=== PATIENT | female | born 1950 | race Caucasian/White ===

== ENCOUNTER → 2017-05-15 | Outpatient (CLI) | payer OTHER, MEDICARE | LOC: FIMAGING 10:46 | PROVIDERS: ATTEND Internal Medicine Hematology & Oncology | DX: Z12.31 Encounter for screening mammogram for malignant neoplasm of breast (principal); Z85.3 Personal history of malignant neoplasm of breast; L76.82 Other postprocedural complications of skin and subcutaneous tissue | CPT/HCPCS: G0202 ==

== ENCOUNTER → 2018-06-23 | Outpatient (CLI) | payer OTHER, MEDICARE | LOC: FIMAGING 13:04 | PROVIDERS: ATTEND Internal Medicine Hematology & Oncology | DX: Z12.31 Encounter for screening mammogram for malignant neoplasm of breast (principal); Z85.3 Personal history of malignant neoplasm of breast ==

== ENCOUNTER → 2018-08-01 | Outpatient (CLI) | payer OTHER, MEDICARE | LOC: BMCIMAGING 15:51 | PROVIDERS: ATTEND Internal Medicine | DX: J98.4 Other disorders of lung (principal) ==

== ENCOUNTER → 2018-08-04 | Outpatient (CLI) | payer OTHER, MEDICARE | LOC: BMCIMAGING 13:13 | PROVIDERS: ATTEND Internal Medicine | DX: J98.4 Other disorders of lung (principal); Z85.3 Personal history of malignant neoplasm of breast ==

== ENCOUNTER → 2018-08-22 | Outpatient (CLI) | payer OTHER, MEDICARE | LOC: FIMAGING 07:10 | PROVIDERS: ATTEND Surgery | DX: N64.4 Mastodynia (principal); Z85.3 Personal history of malignant neoplasm of breast ==

== ENCOUNTER → 2018-09-26 | Outpatient (CLI) | payer OTHER, MEDICARE ==
[~2018-09-26] MED LIST: LIDOCAINE 1% 300 MG/30 ML SDV ONE
== END ==
LOC: FIMAGING 07:41
PROVIDERS: ATTEND Internal Medicine Hematology & Oncology
DX: C50.211 Malignant neoplasm of upper-inner quadrant of right female breast (principal); Z17.1 Estrogen receptor negative status [ER-]

== ENCOUNTER → 2018-10-09 | Outpatient (CLI) | payer OTHER, MEDICARE | LOC: BHFA 14:45 | PROVIDERS: ATTEND Internal Medicine Interventional Cardiology | DX: Z51.11 Encounter for antineoplastic chemotherapy (principal) ==

== ENCOUNTER → 2018-10-20 | Outpatient (CLI) | payer OTHER, MEDICARE ==
[~2018-10-20] MED LIST changes: +IOPAMIDOL (ISOVUE 370) 100 ML BTL IV ONE; -LIDOCAINE 1% 300 MG/30 ML SDV ONE
== END ==
LOC: FIMAGING 12:22
PROVIDERS: ATTEND Physician Assistant
DX: C50.919 Malignant neoplasm of unspecified site of unspecified female breast (principal); J90 Pleural effusion, not elsewhere classified
CPT/HCPCS: 70498; 71275; Q9967

== ENCOUNTER 2018-11-04 15:37 | Inpatient (IN) | payer OTHER, MEDICARE ==
--- NOTE | 2018-11-04 16:41 | EDPHY ---
H & P Stated Complaint: SOB, neck swelling, CA pt, Time Seen by Provider: 11/04/18 16:40 HPI/ROS: CHIEF COMPLAINT: Plethora, shortness of breath, upper thoracic and neck swelling HISTORY OF PRESENT ILLNESS: The patient has a history of metastatic breast cancer Brad to the emergency department after she has developed symptoms of increasing shortness of breath, bilateral arm edema, plethora and decreased function of her chemo port. The patient had a CT scan performed approximately 3 weeks ago which suggested early SVC obstruction. Patient reports that her symptoms have worsened. She is currently anticoagulated with Eliquis. She was referred to the emergency department by [facility] for stat imaging to assess for progressive disease. Patient denies any fever, cough or congestion. She denies any complaints of acute numbness or weakness. She denies any complaints of melena. REVIEW OF SYSTEMS: A comprehensive 10 point review of systems is otherwise negative aside from elements mentioned in the history of present illness. Source: Patient - Personal History Current Tetanus/Diphtheria Vaccine: Yes Current Tetanus Diphtheria and Acellular Pertussis (TDAP): Yes Tetanus Vaccine Date: 2000 - Medical/Surgical History Hx Asthma: No Hx Chronic Respiratory Disease: No Hx Diabetes: No Hx Cardiac Disease: No Hx Renal Disease: No Hx Cirrhosis: No Hx Alcoholism: No Hx HIV/AIDS: No Hx Splenectomy or Spleen Trauma: No Other PMH: breast CA w/ mets, PNA, - Social History Smoking Status: Never smoked - Physical Exam Exam: General Appearance: Elderly female, mild respiratory distress Head: Normocephalic, mildly plethoric Neck: JVD present Eyes: Pupils equal and round no pallor or injection ENT, Mouth: Mucous membranes moist Respiratory: Tachycardic Cardiovascular: Regular rate and rhythm Gastrointestinal: Abdomen is soft and nontender, no masses, bowel sounds normal Neurological: 5/5 strength noted all 4 extremities Skin: Warm and dry, no rashes Musculoskeletal: Neck is supple nontender Extremities: symmetrical, full range of motion Constitutional: Initial Vital Signs Temperature (C) 36.6 C 11/04/18 15:58 Heart Rate 124 H 11/04/18 15:58 Respiratory Rate 16 11/04/18 15:58 Blood Pressure 110/73 11/04/18 15:58 O2 Sat (%) 91 L 11/04/18 15:58 O2 Delivery Mode Room Air O2 (L/minute) 2 Allergies/Adverse Reactions: albuterol [Albuterol] Allergy (Verified 01/19/11 18:18) codeine [Codeine] Allergy (Verified 05/31/11 10:39) latex Allergy (Verified 07/07/15 12:07) oxycodone HCl [From Percocet] Allergy (Verified 05/31/11 10:39) prochlorperazine [From Compazine] Allergy (Verified 11/04/18 15:57) Home Medications: Medication Instructions Recorded Heather-D 12 Hour Tablet 05/31/11 Eliquis 11/04/18 Memantine HCl 11/04/18 Medical Decision Making - Diagnostics Imaging Results: Imaging Impressions Chest/Thorax CTA 11/04/18 16:45 Impression: 1. No evidence of acute pulmonary embolism. 2. Critical, high-grade stenosis of the SVC concerning for SVC syndrome, possibly secondary to a combination of chest port catheter associated thrombus and/or metastatic involvement. 3. Worsening of bilateral pleural effusions and atelectasis. Maximilian Carmona was notified of these findings by telephone at 6:04 PM on 11/04/2018 ED Course/Re-evaluation: The patient presents to the ED with symptoms of worsening SVC syndrome. The patient was noted to be slightly tachycardic and mildly hypoxemic. She is currently anticoagulated with Eliquis. Patient had a repeat CT pulmonary angiogram which demonstrates narrowing of the SVC. I reviewed the study with interventional radiologist Dr. Curran who feels the patient would benefit from possible stenting of the SVC. Patient will be admitted to the hospitalist service for further evaluation and management. She is to remain on her anticoagulation tonight per interventional radiology. Consultation was made with Dr. Dai from the hospitalist service who will admit patient. Differential Diagnosis: Differential diagnosis considered includes pulmonary embolism, SVC syndrome, dehydration, metabolic derangement, arrhythmia Departure - Departure Disposition: [facility] Inpatient Acute Clinical Impression: Metastatic breast cancer, SVC syndrome Condition: Fair
[2018-11-04] MEDS ORDERED: IOHEXOL 350mgI/ML (OMNIPAQUE) 150 ML BTL IV ONE (17:22)
[2018-11-04 18:50] LABS: PLATELET COUNT 143 10^3/uL (150-400)
[2018-11-04 18:58] LABS: INR 1.06 (0.83-1.16)
--- NOTE | 2018-11-04 19:46 | GHP ---
[f rep st] HISTORY AND PHYSICAL DATE OF ADMISSION: 11/04/2018 CHIEF COMPLAINT: Shortness of breath and left arm and neck swelling. HISTORY OF PRESENT ILLNESS: This is a 68-year-old female diagnosed with breast cancer in 2014, treated with lumpectomy, chemotherapy and radiation and subsequently had a recurrence who presents today with increased left upper extremity and neck swelling as well as shortness of breath. The patient has had increased fatigue over the past couple weeks. She had a port placed on 04/[address] Fa[address]in. A CT scan done 3 weeks ago suggested some early SVC obstruction. Since then, her symptoms have gradually worsened. She is currently anticoagulated with Eliquis. She has had increasing shortness of breath throughout the day. Her appetite is described as very poor. She has been having some diarrhea. She denies any fevers but has had some chills. PAST MEDICAL HISTORY: 1. Metastatic breast cancer first diagnosed in 2014 with recurrence diagnosed a few months ago. 2. Pneumonia 3 months ago. PAST SURGICAL HISTORY: 1. Port placement in 2014 with a repeat port placement October 13, [address] Masood Faustin. 2. Left wrist ORIF. 3. Lumpectomy. HOME MEDICATIONS: Reviewed. Refer to [employer] for details. ALLERGIES: Albuterol, codeine, latex, oxycodone, prochlorperazine. SOCIAL HISTORY: The patient denies any tobacco or illicit drug use. She drinks alcohol occasionally. FAMILY HISTORY: Reviewed and noncontributory. REVIEW OF SYSTEMS: Comprehensive 10-point review of systems was done and was negative except for as mentioned in the HPI. PHYSICAL EXAM: VITAL SIGNS: Blood pressure 117/67, heart rate 110, respiratory rate 24, O2 saturation 95% on 2 L. Temperature afebrile. GENERAL: No acute distress. HEAD: Normocephalic, atraumatic. EYES: PERRLA. Sclerae anicteric. MOUTH: Moist mucous membranes. There is an erythematous plaque on the right upper lip. No vesicular lesions or ulcerations. NECK: Supple. HEART: S1-S2. There is JVD. There is trace lower extremity edema. PULMONARY: Lungs are clear. No wheezes, rales, or rhonchi. ABDOMEN: Soft, nontender, nondistended. No guarding or rebound tenderness. EXTREMITIES: Left upper arm is swollen. NEURO: Cranial nerves 2-12 grossly intact. No focal motor or sensory deficits. SKIN: Erythematous patch right upper lip. DIAGNOSTICS: WBC 7, hemoglobin 15, hematocrit 43.1, platelets 143. Coags unremarkable. Sodium 131, potassium 3.7, chloride 100, BUN 11, creatinine 0.7, glucose 109, calcium 8.4. CT angio of the chest done today was reviewed showing no evidence of PE, there is critical high-grade stenosis of the SVC concerning for SVC syndrome, possibly secondary to a combination of chest port catheter associated thrombus and/or metastatic involvement. There is worsening of the bilateral pleural effusions and atelectasis. ASSESSMENT AND PLAN: 1. This is a 68-year-old female with recurrent metastatic breast cancer presenting with upper extremity swelling and shortness of breath concerning for SVC syndrome. Plan: I discussed the case with Dr. Roxana Sal from Oncology and have left a message for the on-call interventional radiologist, Dr. Julián Curran. Per ER report, the plan is for her to undergo interventional radiology procedure tomorrow and SVC stent placement. As of now this seems to be reasonable given that the patient is hemodynamically stable and adequately oxygenating. Will monitor on central pulse oximetry and plan for urgent procedure if respiratory status worsens. 2. Mild hyponatremia. Plan is to continue to monitor. 3. History of recurrent metastatic breast cancer. Plan: Once again, this case was discussed with Dr. Roxana Sal who will see the patient in consultation tomorrow. The patient will be admitted to the hospital under inpatient status. Addendum: I had discussed the case with Dr. Curran who will see the patient in the morning and plan for procedure. If the patient decompensates overnight please notify the on-call interventional radiologist. /[id number]/MODL MTDD
[2018-11-04] MEDS: APIXABAN 2.5 MG TAB PO SCH (22:54)
[2018-11-04] MEDS: MEMANTINE HCL 5 MG TAB PO SCH (22:54)
[2018-11-05] MEDS: MEMANTINE HCL 5 MG TAB PO SCH ×2 (09:11→21:00)
[2018-11-05] MEDS: APIXABAN 2.5 MG TAB PO SCH ×2 (09:12→21:00)
--- NOTE | 2018-11-05 10:12 | PDMN ---
Medical Necessity Medical necessity: Pt meets IP criteria as of 11/04/2018 per and MCG MG-VAS ( Vascular disease GRG); los > 2 mn for ongoing tx and management of probable SVC syndrome in the settting of recurrent metastatic breast cancer; requiring further workup and monitoring including IR consultation with planned intervention.
--- NOTE | 2018-11-05 14:02 | HOSPPROG ---
Hospitalist Progress Note Assessment/Plan: 68yo F with metastatic breast cancer presents with increasing RUE swelling and shortness of breath found to have critical SVC stenosis. 1. SVC syndrome: Now s/p stent placement by IR. Likely due to malignant obstruction rather than port-associated thrombus. - Monitor overnight - Does not need anticoagulation specifically for stent but reasonable to continue eliquis until outpatient follow up - Will leave port in place 2. Metastatic breast cancer: Oncology aware of admission. 3. Hyponatremia: Mild. Recheck in AM. Diet: regular Code: full Dispo: Inpatient for close monitoring of respiratory and hemodynamic status, plan to dc tomorrow if stable Subjective: right arm swelling a bit better with elevation, anxious for procedure. breathing ok Objective: Vital Signs Temp Pulse Resp BP Pulse Ox 36.9 C 95 32 H 114/62 96 11/05/18 12:26 11/05/18 12:26 11/05/18 12:26 11/05/18 12:26 11/05/18 12:26 Laboratory Results 11/04/18 18:34 11/04/18 18:34 11/04/18 11/05/18 11/06/18 05:59 05:59 05:59 Intake Total 200 Balance 200 PT 14.0 SEC (12.0-15.0) 11/04/18 18:34 INR 1.06 (0.83-1.16) 11/04/18 18:34 - Physical Exam Constitutional: no apparent distress, appears nourished, not in pain Eyes: PERRL, anicteric sclera, EOMI Ears, Nose, Mouth, Throat: other (facial plethora) Cardiovascular: regular rate and rhythym, no murmur, rub, or gallop, edema (RUE) Respiratory: no respiratory distress, no rales or rhonchi, clear to auscultation Gastrointestinal: normoactive bowel sounds, soft, non-tender abdomen, no palpable masses Genitourinary: no bladder fullness, no bladder tenderness, no renal bruits Skin: other (neck/chest plethora) Musculoskeletal: full muscle strength, no muscle tenderness, normal joint ROM Neurologic: AAOx3, sensation intact bilaterally Psychiatric: interacting appropriately, not anxious, not encephalopathic, thought process linear ICD10 Worksheet Patient Problems: Problems Problem Status Onset Metastatic breast cancer Acute SVC syndrome Acute
--- NOTE | 2018-11-05 14:20 | PDPROPOC ---
Sedation Plan of Care Sedation Plan of Care: vital signs stable, mental status noted, patient educated of risks, benefits, alternatives, patient can tolerate sedation ASA Classification: ASA 3 Planned drugs: fentanyl, midazolam Mallampati Score: Class 2 Mallampati Reference Image: Patient passed 3-3-2 rule?: Yes
--- NOTE | 2018-11-05 14:20 | PDHPUP ---
History & Physical Update H&P update statement: This history and physical update is based on an assessment of the patient which was completed after admission or registration (within 24 hours), but prior to the surgery/procedure. Acute SVC syndrome. Plan for angiogram and possible stent placement. H&P update: H&P reviewed & patient examined, no change in patient's condition since H&P completed
--- NOTE | 2018-11-05 14:27 | ASMTCMCOM ---
CM Note CM Note Notes: Pt is a 68 y/o female admitted for metastatic breast cancer and svc syndrome. Therapies have been ordered and awaiting recommendations. Needs are TBD at this time. Pt is being followed by oncology. CM to follow. Plan: TBD Date Signed: 11/05/2018 02:26 PM Electronically Signed By:GABRIEL Sim
[2018-11-05] MEDS ORDERED: NALOXONE HCL 0.4 MG/ML INJ ONE (14:46)
[2018-11-05] MEDS ORDERED: FLUMAZENIL 0.5 MG/5 ML MDV IVP ONE (14:47)
[2018-11-05] MEDS ORDERED: MIDAZOLAM 2 MG/2 ML VIAL ONE (14:47)
[2018-11-05] MEDS ORDERED: fentaNYL 100 MCG/2 ML INJ ONE (14:47)
--- NOTE | 2018-11-05 15:49 | PDRADPN ---
Radiology Procedure Note Date of Procedure: 11/05/18 Radiologist: Julián Curran Anesthesia: IV Sedation Pre-op Diagnosis: Acute SVC syndrome Post-op Diagnosis: Acute SVC syndrom Indication: Breast CA Procedure: SVC stent; endovascular snare of chest port catheter with reposition Finding(s): Critical stenosis SVC. Successful endovascular snare of chest port catheter with repositioning after SVC stent placement. Resolution of collaterals and critical stenosis after stent placement. Inf/Abcess present in the surg proc area at time of surgery?: No
[2018-11-05] MEDS ORDERED: ACETAMINOPHEN 325 MG TAB PO PRN (17:00)
[2018-11-05] MEDS ORDERED: FLUMAZENIL 0.5 MG/5 ML MDV IVP PRN (17:10)
[2018-11-05] MEDS ORDERED: NALOXONE HCL 0.4 MG/ML INJ IVP PRN (17:10)
[2018-11-05] MEDS ORDERED: fentaNYL 100 MCG/2 ML INJ IVP PRN (17:10)
[2018-11-05] MEDS ORDERED: MIDAZOLAM 2 MG/2 ML VIAL IVP PRN (17:10)
[2018-11-05] MEDS ORDERED: NS 1,000 ML IV SCH (17:15)
[2018-11-06 07:30] VITALS: BP 93/64
[2018-11-06] MEDS ORDERED: IOPAMIDOL (ISOVUE 370) 100 ML BTL IV ONE (07:59)
[2018-11-06] MEDS: MEMANTINE HCL 5 MG TAB PO SCH (08:57)
[2018-11-06] MEDS: APIXABAN 2.5 MG TAB PO SCH (08:57)
--- NOTE | 2018-11-06 09:34 | PDIAF ---
- Diagnosis Code Status: Full Code - Medication Management Discharge Medications: electronically signed and located in the Home Medication List. - Orders Services needed: Home Care, Registered Nurse Home Care Face to Face: I certify that this patient was under my care and that I had the required [id number] encounter meeting the encounter requirements on the discharge day. My findings support the fact that the patient is homebound as defined in Home Care Face to Face Continued: CMS Chapter 7 Medicare Benefits Manual 30.1.1 , The condition of the patient is such that there exists a normal inability to leave home and consequently, leaving home would require a considerable and taxing effort. Isolation Type: None Oxygen: 2L/min continuously - Follow Up Care Current Providers and Referrals: Estela Souza MD [Primary Care Provider] - As per Instructions
--- NOTE | 2018-11-06 09:34 | PDHOMEO2F ---
Home Oxygen Face to Face Home Orders: I certify that a physician or a nurse practitioner or physician's pizza hut assistant has had a [id number] encounter with this patient on the date of this order due to the diagnosis listed, which relates to the primary reason the patient requires home oxygen. Alternative treatments have been tried, or considered, and deemed ineffective. It is anticipated that supplemental oxygen will result in improvement with treatment. Home oxygen qualifying diagnosis: respiratory failure with hypoxia SpO2 on room air (%): 87 Frequency of home oxygen needed: continuous Home oxygen liters per minute: 2 Home oxygen delivery device: nasal cannula Concentrator: Yes E-tanks for mobility and back up: Yes If ordering portable O2, is the patient mobile in the home?: Yes I certify that, based on these findings, the home oxygen is medically necessary for this patient for the following length of time. Length of time home oxygen needed: 99 years
--- NOTE | 2018-11-06 09:36 | PDDCSUM ---
Discharge Summary Discharge Summary: Date of Admission: 11/04/2018 Date of Discharge: 11/06/2018 Consultants: [facility] Studies/Procedures: 1. CTA chest 2. Venogram of great vessels 3. Endovascular SVC stent placement Discharge Diagnoses: 1. Acute SVC syndrome 2. Metastatic breast cancer 3. Acute hypoxemic respiratory failure 4. Hyponatremia, improved Brief Hospital Course: 68yo F with metastatic breast cancer presented with increasing LUE swelling, neck fullness and facial plethora. CTA chest showed critical high grade stenosis of SVC. IR was consulted and performed venogram which confirmed these findings. It is felt that the stenosis was due to mass effect from adjacent tumor. An SVC stent was successfully placed with resolution of collaterals and critical stenosis. Her symptoms improved significantly. Of note, her port catheter was repositioned during the procedure; there were no signs of port- associated thrombus. Nonetheless, she has been on anticoagulation (for somewhat unclear reasons, ? chemo) and will continue on this. She was requiring supplemental oxygen while here. This did not improve after placement of SVC stent. More likely, this is related to lungs mets and pleural effusions. She was discharged on 2L of oxygen. Medications: Please refer to EMR for complete list. No changes were made. Follow Up Plan: 1. Continue to follow in oncology clinic. Address need for ongoing anticoagulation. 2. Wean supplemental oxygen as able. Physical Exam: Vitals reviewed, normotensive. Alert and oriented, rrr without m/ r/g, lungs with decreased breath sounds at bases but no wheezes or crackles, abdomen soft and nt, no leg edema, no rashes, port site c/d/i.
--- NOTE | 2018-11-06 09:49 | ASMTLACE ---
LACE Length of stay for Answers: 2 days current admission Acuity / Level of Answers: Yes Care: Did the patient have an inpatient admission? Comorbidities - select Answers: Any tumor (including all that apply lymphoma or leukemia) # of Emergency department Answers: 1-2 visits in the last 6 months Score: 8 Date Signed: 11/06/2018 09:49 AM Electronically Signed By:GABRIEL Sim
--- NOTE | 2018-11-06 10:19 | ASDISCHSUM ---
Discharge Information Plan Status:Home with Home Health Medically Cleared to Leave:11/05/2018 Discharge Date:11/05/2018 CM D/C Disposition: ADT D/C Disposition:[facility] Projected Discharge Date:11/06/2018 11:00 AM Transportation at D/C: Discharge Delay Reason: Follow-Up Date:11/06/2018 11:00 AM Discharge Slot: Final Diagnosis: Placement Information Referral Type:*Home Health Care Services Referral ID:[id number] Provider Name:[facility] Address 1:[address] 2: City:[place] Selection Factors: State:[place] Patient Contact Information Contact Name:ALEK Relationship: Address:[address] City:[place] Alternate Phone: State/Zip Code:[place] [address] Email: Financial Information Financial Class:Medicare Primary Plan Desc:MEDICARE INPATIENT Primary Plan Number:[id number] Secondary Plan Desc:[employer]/MDR SUPPLEMENT Secondary Plan Number:[id number] Assessment Information LACE LACE Length of stay for Answers: 2 days current admission Acuity / Level of Answers: Yes Care: Did the patient have an inpatient admission? Comorbidities - select Answers: Any tumor (including all that apply lymphoma or leukemia) # of Emergency department Answers: 1-2 visits in the last 6 months Score: 8 Date Signed: 11/06/2018 09:49 AM Electronically Signed By:GABRIEL Sim [facility] CM Progress Note CM Note CM Note Notes: Pt is a 68 y/o female admitted for metastatic breast cancer and svc syndrome. Therapies have been ordered and awaiting recommendations. Needs are TBD at this time. Pt is being followed by oncology. CM to follow. Plan: TBD Date Signed: 11/05/2018 02:26 PM Electronically Signed By:GABRIEL Sim Case Management Discharge Plan Note Case Management Discharge Discharge Order Complete? Answers: Yes Patient to Obtain Answers: Independently Medications Transportation Arranged Answers: Family/Friends EMTALA Complete Answers: No Case Management Transport Answers: No Form Complete Faxed Final Orders Answers: Yes Agency/Facility Transfer Answers: Yes Report Printed & Faxed to Receiving Agency Family Notified Answers: No Discharge Comments Notes: Pts case discussed w/ Dr. Mcnally. Pt is being d/c'd today. Dr. Mcnally is recommending HC, RN. CM met w/ pt for dispo planning. Pt is agreeable to HC services. Referral sent to [facility]. [facility] is able to accept. FESTUS Hernandez will call to give report. CM available for changes. Plan: FESTUS KEE Date Signed: 11/06/2018 10:18 AM Electronically Signed By:GABRIEL Sim Intervention Information
== END 2018-11-06 14:10 | disposition home health service (06) | DRG 253 ==
LOC: F2W 19:49
PROVIDERS: ADMIT Family Medicine; ATTEND Internal Medicine
DX: I87.1 Compression of vein (principal); C50.919 Malignant neoplasm of unspecified site of unspecified female breast; E87.1 Hypo-osmolality and hyponatremia; Z79.01 Long term (current) use of anticoagulants
CPT/HCPCS: 97165-GO; C1725; C1769; C1773; C1876; C1892; J1644; J2250; J2310; J3010; Q9967

== ENCOUNTER → 2018-12-24 | Outpatient (CLI) | payer OTHER, MEDICARE | LOC: BMCIMAGING 10:22 | PROVIDERS: ATTEND Internal Medicine | DX: J90 Pleural effusion, not elsewhere classified (principal); Z85.3 Personal history of malignant neoplasm of breast; J98.6 Disorders of diaphragm ==

== ENCOUNTER 2019-01-29 16:22 | Inpatient (IN) | payer OTHER, MEDICARE ==
--- NOTE | 2019-01-29 16:58 | EDPHY ---
H & P Stated Complaint: oncology pt, increasing weakness - difficulty standing Time Seen by Provider: 01/29/19 16:34 HPI/ROS: CHIEF COMPLAINT: Increasing weakness, unable to stand, falls today HISTORY OF PRESENT ILLNESS: 68-year-old female with a history of recurrent metastatic breast cancer, Mets to the brain, lungs, and liver, last chemotherapy 8 days ago, presents reporting gradual weakness over the last several days and today inability to stand. Patient reports she feels like her knees will buckle and she has fallen 3 times. Intermittent low-grade fevers. Patient denies any vomiting. Some diarrhea. No urinary complaints. Mild headache. No head trauma. Denies cough, abdominal pain, leg swelling. REVIEW OF SYSTEMS: A comprehensive 10 system review of systems was reviewed and is otherwise negative aside from elements mentioned in the history of present illness and medical decision making. PAST MEDICAL HISTORY: Breast cancer, recurrent and metastatic, metastases to the brain, lungs, and bone. SVC syndrome with endovascular stent. Denies history of asthma, emphysema, coronary artery disease or hypertension. SOCIAL HISTORY: Here with her . VITAL SIGNS Reviewed by me. Heart rate 118, O2 sat 94%, respiratory rate 26 on my count GENERAL: Tired-appearing female, somewhat pale. No respiratory distress but tachypneic. HEENT: Atraumatic. Eyes: No icterus, no injection. Mouth: moist mucous membranes. No erythema or lesions. Neck: supple with no adenopathy. LUNGS: Tachypneic, Clear to auscultation bilaterally, no wheezes, rhonchi or rales. CARDIAC: Tachycardic, no rubs murmurs or gallops. ABDOMEN: Soft, nontender, nondistended, bowel sounds normal. BACK: No CVA tenderness. EXTREMITIES: No trauma. No edema. Range of motion is normal throughout. NEURO: Alert and oriented, grossly nonfocal. SKIN: Warm and dry, no rash. PSYCHIATRIC: Normal mentation, no agitation. - Personal History Current Tetanus/Diphtheria Vaccine: No Current Tetanus Diphtheria and Acellular Pertussis (TDAP): No Tetanus Vaccine Date: 2000 - Medical/Surgical History Hx Asthma: No Hx Chronic Respiratory Disease: No Hx Diabetes: No Hx Cardiac Disease: No Hx Renal Disease: No Hx Cirrhosis: No Hx Alcoholism: No Hx HIV/AIDS: No Hx Splenectomy or Spleen Trauma: No Other PMH: breast CA w/ mets, PNA, FX LEFT WRIST, METAL PLATE. - Social History Smoking Status: Never smoked Constitutional: Initial Vital Signs Temperature (C) 36.8 C 01/29/19 16:26 Heart Rate 118 H 01/29/19 16:26 Respiratory Rate 20 01/29/19 16:26 Blood Pressure 116/66 01/29/19 16:26 O2 Sat (%) 97 01/29/19 16:26 O2 Delivery Mode Nasal Cannula O2 (L/minute) 2 Allergies/Adverse Reactions: codeine [Codeine] Allergy (Verified 01/29/19 16:29) Vomiting latex Allergy (Verified 01/29/19 16:29) oxycodone HCl [From Percocet] Allergy (Verified 01/29/19 16:29) feels ill prochlorperazine [From Compazine] Allergy (Verified 01/29/19 16:29) swelling underneath ears Home Medications: Medication Instructions Recorded Ibuprofen [Motrin (*)] 400 mg PO Q12H PRN 11/04/18 Memantine HCl [Namenda 10 mg] 10 mg PO BID 11/04/18 Herbals/Supplements -Info Only 1 ea PO DAILY 01/29/19 Mirtazapine [Remeron soltab 15 mg 15 mg PO HS 01/29/19 (*)] Ondansetron HCl 8 mg PO Q8H PRN 01/29/19 Dexamethasone [Decadron 4 MG (*)] 4 mg PO BID #60 tab 02/02/19 Loperamide HCl [Imodium 2 mg (*)] 2 mg PO QID PRN #30 cap 02/02/19 Medical Decision Making - Diagnostics EKG Interpretation: 12-LEAD EKG: Please see the full report in [facility]. My interpretation: Sinus tachycardia, slight ST elevation lateral leads, baseline artifact Imaging Results: CXR: Impression: Improved right and slight increase in small left pleural effusion. Otherwise stable. Dictated By: Dakotah Solis MD CT Chest Impression: 1. No evidence of pulmonary embolus using CT protocol. 2. Extensive diffuse osseous sclerotic metastatic disease. No pathologic fracture seen. 3. Chronic atelectasis and/or fibrosis right middle lobe as well as right lung base and posterior right upper lobe. 4. Stable complex presumed hematoma right upper breast centrally. 5. Stable loculated effusion right upper chest. Findings discussed with Jessica Schulz MD at 19:47 hour, 01/29/2019. Dictated By: Dick Figueredo MD Imaging: Discussed imaging studies w/ call manager Radiologist, I viewed and interpreted images myself ED Course/Re-evaluation: 68-year-old female with history of metastatic cancer presents with progressive weakness and inability to stand. EKG sinus tachycardia. Chest x-ray without acute infiltrate, patient does have pleural effusions which have previously been known. Laboratory evaluation: Increased AST, ALT, and alk-phos. H&H stable. Patient' s electrolytes are basically at their baseline, with no acute findings to suggest cause of the patient's weakness. Lactic acid elevated. Patient will be admitted to the hospital for further evaluation. Certainly, she is not safe to be discharged home with this progressive weakness. She also reports weight loss. No focality in the neurologic exam, do not believe neuro imaging is warranted at this time. Urine pending at this time. Differential Diagnosis: Differential diagnosis of the patient's weakness was considered including but not limited to electrolyte abnormality, anemia, cardiac ischemia, CVA, spinal cord abnormality, and infectious causes. Consult/Admit Bed Type: Dr. Jun Najera, med surg - Data Points Laboratory Results: Laboratory Results 01/29/19 17:25 01/29/19 17:25 Medications Given: Discontinued Medications Alteplase, Recombinant (Cathflo Activase) 2 mg IVP PRN PRN PRN Reason: MED PORT Stop: 07/31/19 17:48 Last Admin: 02/01/19 18:18 Dose: 2 mg Dexamethasone (Decadron) 4 mg PO BID ADITI Stop: 07/30/19 20:59 Last Admin: 02/02/19 08:17 Dose: 4 mg Enoxaparin Sodium (Lovenox) 40 mg SC DAILY ADITI Stop: 07/29/19 08:59 Last Admin: 02/01/19 09:33 Dose: Not Given Sodium Chloride (Ns) 1,000 mls @ 0 mls/hr IV ONCE ONE; Wide Open PRN Reason: Protocol Stop: 01/29/19 18:14 Last Admin: 01/29/19 18:41 Dose: 1,000 mls Sodium Chloride (Ns) 1,000 mls @ 125 mls/hr IV CONT ADITI Stop: 07/28/19 18:44 Last Admin: 01/30/19 11:34 Dose: 1,000 mls Ceftriaxone Sodium/Dextrose (Rocephin 1 Gm (Premix)) 50 mls @ 100 mls/hr IV DAILY ADITI PRN Reason: Protocol Stop: 02/02/19 00:00 Last Admin: 02/01/19 09:33 Dose: 50 mls Ceftriaxone Sodium 1 gm/ (Dextrose) 50 mls @ 100 mls/hr IV DAILY ADITI Stop: 03/04/19 08:59 Last Admin: 02/02/19 09:16 Dose: 50 mls Loperamide HCl ( Imodium) 2 mg PO QID PRN PRN Reason: Diarrhea/Loose Stools Stop: 07/30/19 11:56 Last Admin: 02/02/19 08:17 Dose: 2 mg Memantine (Namenda) 10 mg PO BID ADITI Stop: 07/28/19 20:59 Last Admin: 02/02/19 08:17 Dose: 10 mg Mirtazapine (Remeron Soltab) 15 mg PO HS [facility] Stop: 07/28/19 20:59 Last Admin: 02/01/19 20:12 Dose: 15 mg Ondansetron HCl (Zofran Odt) 4 mg PO Q4HRS PRN PRN Reason: Nausea/Vomiting, Use 1st Stop: 07/28/19 18:41 Last Admin: 01/30/19 22:41 Dose: 4 mg Departure - Departure Disposition: [facility] Acute Clinical Impression: Weakness, Metastatic breast cancer Condition: Fair
[2019-01-29 17:40] LABS: PLATELET COUNT 177 10^3/uL (150-400)
[2019-01-29] MEDS ORDERED: NS 1,000 ML IV ONE (18:13)
[2019-01-29] MEDS ORDERED: oxyCODONE IR 5 MG TAB PO PRN (18:42)
[2019-01-29] MEDS ORDERED: ACETAMINOPHEN 325 MG TAB PO PRN (18:42)
[2019-01-29] MEDS ORDERED: PROMETHAZINE HCL 25 MG/ML INJ IVP PRN (18:42)
[2019-01-29] MEDS ORDERED: LORazepam 2 MG/ML INJ IVP PRN (18:42)
[2019-01-29] MEDS ORDERED: LORazepam 0.5 MG TAB PO PRN (18:42)
[2019-01-29] MEDS ORDERED: HYDROmorphONE/DILAUDID 1 MG/ML INJ IVP PRN (18:42)
[2019-01-29] MEDS ORDERED: HYDROCODONE/APAP 5/325 TAB PO PRN (18:42)
[2019-01-29] MEDS ORDERED: ONDANSETRON 4 MG/2 ML VIAL IVP PRN (18:42)
[2019-01-29] MEDS ORDERED: IBUPROFEN 200 MG TAB PO PRN (18:44)
[2019-01-29 18:45] LABS: PROTIME(PATIENT) 12.8 SEC (12.0-15.0)
--- NOTE | 2019-01-29 18:53 | PDGENHP ---
History and Physical - Chief Complaint weakness/fatigue - History of Present Illness 68 yo F with PMH of metastatic breast cancer with mets to lung, liver and brain recently started on a new chemo regimen of trastuzumab, pertuzumab and paclitaxel who presents with complaints of increasing fatigue and generalized weakness. She completed the first round of this chemo regimen about 1 week ago and notes that since then she has been increasingly weak, to the point where today, she was unable to walk. Her notes that she has been spending around 22 hours in bed for at least the last week, though she has been fatigued even prior to starting this most recent round of chemo. Today at home she fell three times after feeling like her knees had buckled, this has never happened to her before. She denies any focal weakness or numbness, but just was unable to stand today. She has lost approximately 45 pounds in the last several months and states she has very little appetite. She denies pain with eating, occasionally will have nausea, but for the most part just is not hungry and nothing tastes good. She has been taking medications and CBD/THC tincture in order to stimulate her appetite but that has been only marginally helpful. She denies fever or chills recently, she has no new pain and states that her chronic pain in her right lung is better than it typically is. History Information - Allergies/Home Medication List Allergies/Adverse Reactions: codeine [Codeine] Allergy (Verified 01/29/19 16:29) Vomiting latex Allergy (Verified 01/29/19 16:29) oxycodone HCl [From Percocet] Allergy (Verified 01/29/19 16:29) feels ill prochlorperazine [From Compazine] Allergy (Verified 01/29/19 16:29) swelling underneath ears Home Medications: Ibuprofen [Motrin (*)] 400 mg PO Q12H PRN 11/04/18 [Last Taken 11/02/18] Memantine HCl [Namenda 10 mg] 10 mg PO BID 11/04/18 [Last Taken 01/29/19] Dexamethasone [Decadron 4 MG (*)] 20 mg PO AD 01/29/19 [Last Taken 01/29/19] Herbals/Supplements -Info Only 1 ea PO DAILY 01/29/19 [Last Taken 01/29/19] Mirtazapine [Remeron soltab 15 mg (*)] 15 mg PO HS 01/29/19 [Last Taken 01/28/19 ] Ondansetron HCl 8 mg PO Q8H PRN 01/29/19 [Last Taken 01/29/19] PACLitaxel [TaxoL] 290 mg IV AD 01/29/19 [Last Taken 01/21/19] Pertuzumab [Perjeta] 840 mg IV AD 01/29/19 [Last Taken 01/21/19] Trastuzumab [Herceptin (*)] 450 mg IV AD 01/29/19 [Last Taken 01/21/19] Zoledronic Acid 4 mg IV AD 01/29/19 [Last Taken 01/21/19] I have personally reviewed and updated: family history, medical history, social history, surgical history - Past Medical History cancer (metastatic breast cancer--mets to liver, lung and brain s/p surgery/ chemo/radiation) Additional medical history: SVC syndrome - Surgical History Reports: cancer surgery (lumpectomy) Additional surgical history: PORT, ORIF wrist, SVC stent - Family History Positive for: non-pertinent - Social History Smoking Status: Never smoked Alcohol Use: None Drug Use: None Additional social history: Review of Systems Review of Systems: ROS: 10pt was reviewed & negative except for what was stated in HPI & below Physical Exam Physical Exam: Temp Pulse Resp BP Pulse Ox 36.5 C 104 H 20 118/71 99 01/29/19 18:35 01/29/19 18:35 01/29/19 18:35 01/29/19 18:35 01/29/19 18:35 O2 (L/minute) 2 Constitutional: chronically ill appearing, No appears nourished Eyes: PERRL, anicteric sclera Ears, Nose, Mouth, Throat: hearing normal, dry mucous membranes Cardiovascular: regular rate and rhythym, no murmur, rub, or gallop, No edema Respiratory: no respiratory distress, no rales or rhonchi Gastrointestinal: normoactive bowel sounds, soft, non-tender abdomen Genitourinary: no bladder fullness Skin: warm, normal color Musculoskeletal: full muscle strength Neurologic: AAOx3, CN II-XII Intact, No weakness, No numbness Psychiatric: interacting appropriately, not anxious Lab Data & Imaging Review 01/29/19 17:25 01/29/19 17:25 WBC 4.11 10^3/uL (3.80-9.50) 01/29/19 17:25 RBC 3.76 10^6/uL (4.18-5.33) L 01/29/19 17:25 Hgb 11.3 g/dL (12.6-16.3) L 01/29/19 17:25 Hct 35.1 % (38.0-47.0) L 01/29/19 17:25 MCV 93.4 fL (81.5-99.8) 01/29/19 17:25 MCH 30.1 pg (27.9-34.1) 01/29/19 17: MCHC 32.2 g/dL (32.4-36.7) L 01/29/19 17:25 RDW 17.5 % (11.5-15.2) H 01/29/19 17:25 Plt Count 177 10^3/uL (150-400) 01/29/19 17:25 MPV 9.6 fL (8.7-11.7) 01/29/19 17:25 PT 12.8 SEC (12.0-15.0) 01/29/19 17:25 INR 1.00 (0.83-1.16) 01/29/19 17:25 APTT 32.4 SEC (23.0-38.0) 01/29/19 17:25 VBG Lactic Acid 3.2 mmol/L (0.7-2.1) H 01/29/19 17:25 Sodium 134 mEq/L (135-145) L 01/29/19 17:25 Potassium 3.9 mEq/L (3.5-5.2) 01/29/19 17:25 Chloride 104 mEq/L (97-110) 01/29/19 17:25 Carbon Dioxide 20 mEq/l (22-31) L 01/29/19 17:25 Anion Gap 10 mEq/L (6-14) 01/29/19 17:25 BUN 20 mg/dL (7-23) 01/29/19 17:25 Creatinine 0.7 mg/dL (0.6-1.0) 01/29/19 17:25 Estimated GFR > 60 01/29/19 17:25 Glucose 96 mg/dL (70-100) 01/29/19 17:25 Calcium 9.1 mg/dL (8.5-10.4) 01/29/19 17:25 Total Bilirubin 0.8 mg/dL (0.1-1.4) 01/29/19 17:25 Conjugated Bilirubin 0.3 mg/dL (0.0-0.5) 01/29/19 17:25 Unconjugated Bilirubin 0.6 mg/dL (0.0-1.1) 01/29/19 17:25 AST 68 IU/L (14-46) H 01/29/19 17:25 ALT 63 IU/L (9-52) H 01/29/19 17:25 Alkaline Phosphatase 727 IU/L (38-126) H 01/29/19 17:25 Troponin I < 0.012 ng/mL (0.000-0.034) 01/29/19 17:25 Total Protein 6.4 g/dL (6.3-8.2) 01/29/19 17:25 Albumin 3.6 g/dL (3.5-5.0) 01/29/19 17:25 Lipase 287 IU/L (23-300) 01/29/19 17:25 Visualized and Interpreted Chest x-ray results: Yes Chest X-Ray results: effusion (bilateral pleural effusion, improved on right) Visualized and Interpreted EKG results: Yes EKG additional interpertation: sinus tach Assessment & Plan Assessment: 68 yo F with PMH of metastatic breast cancer presenting with increased fatigue and weakness in setting of significant weight loss and new chemo regimen # weakness/fatigue: s/p fall x 3 today with reports of legs buckling, on exam strength is intact bilaterally and suspect that weakness is largely due to deconditioning in setting of malnutrition and being largely bed bound for at least the last week. Plan is for PT/OT, CM--may require SNF stay. At this time do not suspect acute intracranial process despite known brain mets given non focal neuro exam, however low threshold for MRI if this changes. # metastatic breast cancer: initially diagnosed in 2014 with recurrence recently and diagnosis of metastatic disease with mets to brain, liver, lung. She has recently started new regimen of trastuzumab, pertuzumab and paclitaxel. Oncology consulted and will evaluate in am. # tachycardia/tachypnea: without hypoxia or complaints of chest pain, CTA ordered and pending # transaminitis: mild, with associated elevated alk phos in setting of known liver mets, will trend # pleural effusion: malignant effusion that has been present in the past as well , appears improved on the right, small on the left. CTA pending as above will get further characterization # SVC syndrome: s/p SVC stent with resolution of sxs since then, this was due to combination of extrinsic compression from metastatic disease as well as effect from chest port which was also repositioned at that time # anemia: mild, stable # malnutrition: patient reporting poor intake and approximately 45 pound weight loss over several months, albumin actually wnl, will check prealbumin. Asked for dietary consult for am. Counseled regarding smaller more frequent meals. # IP status Patient new to my care. Old records reviewed and summarized as above. Further hx obtained from patients present at bedside, care plan reviewed with ER doctor and Dr. Thomas, oncology.
[2019-01-29] MEDS ORDERED: IOPAMIDOL (ISOVUE 370) 100 ML BTL IV ONE (19:09)
[2019-01-29] MEDS: NS 1,000 ML IV SCH (19:33)
[2019-01-29] MEDS ORDERED: DEXAMETHASONE 4 MG TAB PO SCH (21:00)
[2019-01-29] MEDS: MIRTAZAPINE 15 MG ODTAB PO SCH (21:46)
[2019-01-29] MEDS: MEMANTINE HCL 5 MG TAB PO SCH (21:46)
[2019-01-29] MEDS: ONDANSETRON DISINTEGRATING 4 MG TAB PO PRN (22:22)
[2019-01-30] MEDS: NS 1,000 ML IV SCH ×2 (03:25→11:34)
[2019-01-30 06:30] LABS: PLATELET COUNT 103 10^3/uL (150-400)
[2019-01-30] MEDS: ENOXAPARIN 40 MG/0.4 ML SYR SC SCH (08:39)
[2019-01-30] MEDS: MEMANTINE HCL 5 MG TAB PO SCH ×2 (09:29→22:28)
--- NOTE | 2019-01-30 10:04 | ASMTCMCOM ---
CM Note CM Note Notes: Patient admitted with increased fatigue and weakness in setting of new chemo regime for metastatic breast cancer. She lives at home with who reports that she hasn't really been out of bed in weeks. Her last admission to [facility] was in October of this year; she discharged home with [facility] RN/PT/OT and had these services through November. PT/OT evals ordered and pending. Case Management will follow. Date Signed: 01/30/2019 10:04 AM Electronically Signed By:Sharla Colby RN
--- NOTE | 2019-01-30 11:53 | GCON ---
[f rep st] CONSULTATION The patient is a 68-year-old patient who was initially diagnosed with breast carcinoma in 2014. This involved her right breast and was an ER/NY-negative which was 2+ by HER2 and positive for FISH with a ratio of 2.75. She underwent lumpectomy and sentinel lymph node biopsy. Lumpectomy specimen showed an invasive ductal carcinoma, 1.1 cm, grade 2, 6 lymph nodes were negative. She was treated with 12 weekly cycles of Taxol and Herceptin and completed a year of Herceptin. 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 An MRI of the brain showed at least 25 scattered supratentorial metastases and there was metastasis in the retina. She also had a cough and a PET scan showed left axillary and mediastinal adenopathy as well as hilar adenopathy. There was thickening of the right hemithorax and there was severe and significant osseous metastasis, most of which were without CT correlate. She had a rebiopsy of an axillary lymph node which confirmed breast cancer which is ER/NY-negative, HER2 was again 2+ by IHC and positive for FISH. She was started on TDM 1 and received 4 cycles as well as whole-brain radiation. Unfortunately, after 4 cycles of TDM 1. Her disease had clearly progressed, particularly in the bones in the right hemithorax. A repeat MRI of the brain showed improvement, but not disappearance of her [employer] metastasis. She was then switched to Taxol with dual antibody therapy of Herceptin and pertuzumab and she received her 1st cycle about 10 days ago. She was admitted yesterday with increasing weakness and described her legs buckling. She was treated with hydration. This morning she feels just a bit better. She denies really any significant pain. She does have a slight cough. Additional issues include an SVC stent placed early in the course of her recent relapse because of an impending SVC syndrome. This seems to be functioning reasonably well. She was on anticoagulation, but this was stopped because of recurrent nosebleeds. PAST MEDICAL HISTORY: She has, otherwise, been quite healthy. SURGERIES: Include port placement, ORIF of the wrist, and SVC stent. SOCIAL HISTORY: She is . REVIEW OF SYSTEMS: Negative except as discussed above. PHYSICAL EXAMINATION: GENERAL: Today, she is alert. She appears mildly chronically ill. VITAL SIGNS: Blood pressure 126/71. She is afebrile. She is not icteric. LUNGS: Somewhat diminished breath sounds on the right lung. CARDIAC: Unremarkable. ABDOMEN: Benign. NEUROLOGIC: Diffuse weakness. SKIN : Unremarkable. ADMISSION LABORATORY: Shows a white count of 3000, hemoglobin of 9.6, hematocrit of 30.3, platelets 103,000. Transaminases are mildly elevated at 68 and 63 for the AST and ALT respectively. Alkaline phosphatase is 727. IMPRESSION/PLAN: Patient with widely metastatic breast cancer, presenting with weakness after chemotherapy. I think this is most likely related to her chemotherapy. She does have fairly extensive bony metastasis and I think we need to keep in mind the possibility of some sort of epidural disease involving her spine, although she does not have any pain. We discussed the pros and cons of imaging which I think would require imaging of her cervical, thoracic, and lumbar spine. She really is not excited about that prospect today and we elected to watch her for another day and see if she improves. I do note that foundation testing did not show evidence of a HER2 mutation and there is some concern that HER2 directed therapy may not be effective in this patient and that she may be behaving as a triple negative breast cancer. I have asked that PD-L1 testing be done on her axillary biopsy from a few months ago. She might be a potential candidate for immunotherapy. I note that she has been on a fair amount of steroids and certainly some proximal muscle weakness could be an issue related to that. Our service will follow with you. /[id number]/MODL MTDD
--- NOTE | 2019-01-30 12:40 | PDMN ---
Medical Necessity Medical necessity: Pt meets IP criteria per & [facility] Medical Oncology; est los >2 mn for eval/tx of tachycardia, tachypnea, malnutrition, weakness, fatigue & falls s/p new chemo regimen; admit for further workup/monitoring, Oncology/Dietary consults & therapies; comorbid metastatic breast cancer; per H& P & order 01/29/19
--- NOTE | 2019-01-30 14:20 | HOSPPROG ---
Hospitalist Progress Note Assessment/Plan: 68 yo F with PMH of metastatic breast cancer presenting with increased fatigue and weakness in setting of significant weight loss and new chemo regimen # weakness/fatigue: s/p fall x 3 today with reports of legs buckling, on exam strength is intact bilaterally and suspect that weakness is largely due to deconditioning in setting of malnutrition and being largely bed bound for at least the last week. Plan is for PT/OT, CM--may require SNF stay. At this time do not suspect acute intracranial process despite known brain mets given non focal neuro exam, however low threshold for MRI if this changes. # metastatic breast cancer: initially diagnosed in 2015 with recurrence recently and diagnosis of metastatic disease with mets to brain, liver, lung. She has recently started new regimen of trastuzumab, pertuzumab and paclitaxel. Oncology consulted and will evaluate in am. #Bacteriuria, possibly acute cystitis -Given immunocompromised state, will start Rocephin. Send culture. # tachycardia/tachypnea: without hypoxia or complaints of chest pain, CTA ordered and negative -appears resolving # transaminitis: mild, with associated elevated alk phos in setting of known liver mets, will trend # pleural effusion: malignant effusion that has been present in the past as well , appears improved on the right, small on the left. -CTA negative # SVC syndrome: s/p SVC stent with resolution of sxs since then, this was due to combination of extrinsic compression from metastatic disease as well as effect from chest port which was also repositioned at that time -Not on AC due to nose bleeds # anemia: mild, stable # malnutrition: patient reporting poor intake and approximately 45 pound weight loss over several months, albumin actually wnl, will check prealbumin. Asked for dietary consult for am. Counseled regarding smaller more frequent meals. Plan: Start Rocephin culture Oncology following: MRI of spine tomorrow Stop IVF cont inpatient Palliative Care PT/OT likely needs SNF Subjective: no cp or sob. no n/v. feeling a little better. Still weak Objective: Vital Signs Temp Pulse Resp BP Pulse Ox 37.0 C 102 H 18 108/63 92 01/30/19 11:36 01/30/19 11:36 01/30/19 11:36 01/30/19 11:36 01/30/19 11:36 Laboratory Results 01/30/19 06:15 01/30/19 06:15 01/29/19 01/30/19 01/31/19 05:59 05:59 05:59 Intake Total 1388 Output Total 625 Balance 763 PT 12.8 SEC (12.0-15.0) 01/29/19 17:25 INR 1.00 (0.83-1.16) 01/29/19 17:25 - Physical Exam Constitutional: no apparent distress, chronically ill appearing Eyes: PERRL, EOMI Ears, Nose, Mouth, Throat: moist mucous membranes, hearing normal Cardiovascular: regular rate and rhythym, No edema Respiratory: no respiratory distress, no rales or rhonchi Gastrointestinal: normoactive bowel sounds Skin: warm Musculoskeletal: generalized weakness Neurologic: AAOx3 Psychiatric: interacting appropriately, not anxious, not encephalopathic Lymph, Heme, Immunologic: No petechiae ICD10 Worksheet Patient Problems: Problems Problem Status Onset Metastatic breast cancer Acute SVC syndrome Acute
--- NOTE | 2019-01-30 16:01 | ASMTCMCOM ---
CM Note CM Note Notes: PT/OT and providers all suggesting SNF. I spoke with patient about it, and she is amenable although she is not familiar with any facilities. I gave her a Senior Blue Book and sent five preliminary referrals based on where she lives. She and her will review, and Case Management will follow. Date Signed: 01/30/2019 04:01 PM Electronically Signed By:Sharla Colby RN
[2019-01-30] MEDS: MIRTAZAPINE 15 MG ODTAB PO SCH (22:28)
[2019-01-30] MEDS: ONDANSETRON DISINTEGRATING 4 MG TAB PO PRN (22:41)
[2019-01-31 05:16] LABS: PLATELET COUNT 117 10^3/uL (150-400)
[2019-01-31] MEDS: ENOXAPARIN 40 MG/0.4 ML SYR SC SCH ×2 (09:46→09:52)
[2019-01-31] MEDS: MEMANTINE HCL 5 MG TAB PO SCH ×2 (09:46→20:24)
--- NOTE | 2019-01-31 12:02 | SOAPPROG ---
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 Diarrhea improved. She feels stronger after hydration. Will add Imodium today. I think that her diarrhea is almost certainly related to her recent Herceptin and Perjeta. Stool cultures have been sent. Continue hydration. Possible d/c Saturday if she continues to improve. No plan for additional imaging this hospital stay. Patient and 's questions answered. Care plan d/w nursing. 01/31/19 11:58 Subjective: Feels better. Diarrhea improved. Denies extremity weakness. at bedside Objective: Vital Signs Temp Pulse Resp BP Pulse Ox 37.0 C 97 16 117/64 93 01/31/19 08:00 01/31/19 08:00 01/31/19 08:00 01/31/19 08:00 01/31/19 08:00 Laboratory Results 01/31/19 05:10 01/31/19 05:10 01/30/19 01/31/19 02/01/19 05:59 05:59 05:59 Intake Total 1388 2340 Output Total 625 1300 Balance 763 1040 PT 12.8 SEC (12.0-15.0) 01/29/19 17:25 INR 1.00 (0.83-1.16) 01/29/19 17:25 - Time Spent With Patient Time Spent With Patient: 25 minutes Physical Exam - Physical Exam General Appearance: alert, no apparent distress EENT: PERRL/EOMI Cardiac/Chest: regular rate, rhythm Abdomen: normal bowel sounds, non-tender, soft Skin: No rash Neuro/Psych: alert (moves all 4 extremities without difficulty), normal mood/ affect, oriented x 3 ICD10 Worksheet Patient Problems: Problems Problem Status Onset Metastatic breast cancer Acute SVC syndrome Acute
--- NOTE | 2019-01-31 13:49 | HOSPPROG ---
Hospitalist Progress Note Assessment/Plan: 68 yo F with PMH of metastatic breast cancer presenting with increased fatigue and weakness in setting of significant weight loss and new chemo regimen # weakness/fatigue: s/p fall x 3 today with reports of legs buckling, on exam strength is intact bilaterally and suspect that weakness is largely due to deconditioning in setting of malnutrition and being largely bed bound for at least the last week. Plan is for PT/OT, CM--may require SNF stay. At this time do not suspect acute intracranial process despite known brain mets given non focal neuro exam, however low threshold for MRI if this changes. # metastatic breast cancer: initially diagnosed in 2015 with recurrence recently and diagnosis of metastatic disease with mets to brain, liver, lung. She has recently started new regimen of trastuzumab, pertuzumab and paclitaxel. Oncology consulted and will evaluate in am. #Bacteriuria, possibly acute cystitis -Given immunocompromised state, will start Rocephin. Send culture. # tachycardia/tachypnea: without hypoxia or complaints of chest pain, CTA ordered and negative -appears resolving # transaminitis: mild, with associated elevated alk phos in setting of known liver mets, will trend # pleural effusion: malignant effusion that has been present in the past as well , appears improved on the right, small on the left. -CTA negative # SVC syndrome: s/p SVC stent with resolution of sxs since then, this was due to combination of extrinsic compression from metastatic disease as well as effect from chest port which was also repositioned at that time -Not on AC due to nose bleeds # anemia: mild, stable # malnutrition: patient reporting poor intake and approximately 45 pound weight loss over several months, albumin actually wnl, will check prealbumin. Asked for dietary consult for am. Counseled regarding smaller more frequent meals. Plan: cont Rocephin follow culture Oncology following: MRI of spine per Oncology No IVF cont inpatient Palliative Care PT/OT likely needs SNF Subjective: feels better overall. no cp or sob Objective: Vital Signs Temp Pulse Resp BP Pulse Ox 37.1 C 95 20 122/69 H 94 01/31/19 11:59 01/31/19 11:59 01/31/19 11:59 01/31/19 11:59 01/31/19 11:59 Laboratory Results 01/31/19 05:10 01/31/19 05:10 01/30/19 01/31/1902/01/19 05:59 05:59 05:59 Intake Total 1388 2340 Output Total 625 1300 250 Balance 763 1040 -250 PT 12.8 SEC (12.0-15.0) 01/29/19 17:25 INR 1.00 (0.83-1.16) 01/29/19 17:25 - Physical Exam Constitutional: no apparent distress Eyes: PERRL, EOMI Ears, Nose, Mouth, Throat: moist mucous membranes, hearing normal Cardiovascular: regular rate and rhythym, edema Respiratory: no respiratory distress, no rales or rhonchi, clear to auscultation Gastrointestinal: normoactive bowel sounds, soft, non-tender abdomen Skin: warm Musculoskeletal: generalized weakness Neurologic: AAOx3 Psychiatric: interacting appropriately, not anxious, not encephalopathic Lymph, Heme, Immunologic: No petechiae ICD10 Worksheet Patient Problems: Problems Problem Status Onset Metastatic breast cancer Acute SVC syndrome Acute
[2019-01-31] MEDS: LOPERAMIDE HCL 2 MG CAP PO PRN ×2 (14:10→16:40)
[2019-01-31] MEDS: DEXAMETHASONE 4 MG TAB PO SCH (20:24)
[2019-01-31] MEDS: MIRTAZAPINE 15 MG ODTAB PO SCH (20:24)
[2019-02-01 06:04] LABS: PLATELET COUNT 115 10^3/uL (150-400)
[2019-02-01] MEDS: DEXAMETHASONE 4 MG TAB PO SCH ×2 (09:33→20:12)
[2019-02-01] MEDS: ENOXAPARIN 40 MG/0.4 ML SYR SC SCH (09:33)
[2019-02-01] MEDS: MEMANTINE HCL 5 MG TAB PO SCH ×2 (09:33→20:12)
--- NOTE | 2019-02-01 11:35 | HOSPPROG ---
Hospitalist Progress Note Assessment/Plan: 68 yo F with PMH of metastatic breast cancer presenting with increased fatigue and weakness in setting of significant weight loss and new chemo regimen # weakness/fatigue: s/p fall x 3 on admission with reports of legs buckling, on exam strength is intact bilaterally and suspect that weakness is largely due to deconditioning in setting of malnutrition and being largely bed bound for at least the last week. Plan is for PT/OT, CM--may require SNF stay. At this time do not suspect acute intracranial process despite known brain mets given non focal neuro exam, however low threshold for MRI if this changes. # metastatic breast cancer: initially diagnosed in 2014 with recurrence recently and diagnosis of metastatic disease with mets to brain, liver, lung. She has recently started new regimen of trastuzumab, pertuzumab and paclitaxel. Oncology consulted and will evaluate in am. #Bacteriuria, possibly acute cystitis -Given immunocompromised state, will start Rocephin. Send culture. # tachycardia/tachypnea: without hypoxia or complaints of chest pain, CTA ordered and negative -resolving # transaminitis: mild, with associated elevated alk phos in setting of known liver mets, will trend # pleural effusion: malignant effusion that has been present in the past as well , appears improved on the right, small on the left. -CTA negative -resp greene stable # SVC syndrome: s/p SVC stent with resolution of sxs since then, this was due to combination of extrinsic compression from metastatic disease as well as effect from chest port which was also repositioned at that time -Not on AC due to nose bleeds # malnutrition: patient reporting poor intake and approximately 45 pound weight loss over several months, albumin actually wnl, will check prealbumin. Asked for dietary consult for am. Counseled regarding smaller more frequent meals. #Pancytopenia, likely chemotherapy induced Plan Overall doing better Can stop Abx soon Oncology following No IVF cont inpatient Palliative Care PT/OT likely needs SNF Likely d/c on Saturday Subjective: feels better overall. no cp or sob. no n/v Objective: Vital Signs Temp Pulse Resp BP Pulse Ox 36.7 C 103 H 16 104/54 L 93 02/01/19 08:00 02/01/19 08:00 02/01/19 08:00 02/01/19 08:00 02/01/19 08:00 Microbiology 01/30/19 00:50 Urine Culture - Final Unspecified [place] Types Laboratory Results 02/01/19 06:00 02/01/19 06:00 01/31/19 02/01/19 02/02/19 05:59 05:59 05:59 Intake Total 2340 300 Output Total 1300 450 Balance 1040 -150 PT 12.8 SEC (12.0-15.0) 01/29/19 17:25 INR 1.00 (0.83-1.16) 01/29/19 17:25 - Physical Exam Constitutional: no apparent distress Eyes: PERRL, EOMI Ears, Nose, Mouth, Throat: moist mucous membranes, hearing normal Cardiovascular: regular rate and rhythym, No edema Respiratory: no respiratory distress, no rales or rhonchi, clear to auscultation Gastrointestinal: normoactive bowel sounds, soft, non-tender abdomen Skin: warm Musculoskeletal: generalized weakness Neurologic: AAOx3 Psychiatric: interacting appropriately, not anxious, not encephalopathic Lymph, Heme, Immunologic: No petechiae ICD10 Worksheet Patient Problems: Problems Problem Status Onset Metastatic breast cancer Acute SVC syndrome Acute
--- NOTE | 2019-02-01 14:23 | SOAPPROG ---
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 Continues to improve. Diarrhea improved with addition of Imodium. She feels stronger after hydration. I think that her diarrhea is almost certainly related to her recent Herceptin and Perjeta. Stool cultures negative so far. Continue hydration. Possible d/c Saturday if she continues to improve. She plans to go to a SNF prior to returning home. No plan for additional imaging this hospital stay. Patient and 's questions answered. Subjective: Fells better. Diarrhea improving, and is now minimal. Denies pain. Appetite better. at bedside. Objective: Vital Signs Temp Pulse Resp BP Pulse Ox 36.9 C 98 16 117/69 93 02/01/19 12:00 02/01/19 12:00 02/01/19 12:00 02/01/19 12:00 02/01/19 12:00 Microbiology 01/30/19 00:50 Urine Culture - Final Unspecified [place] Types Laboratory Results 02/01/19 06:00 02/01/19 06:00 01/31/19 02/01/19 02/02/19 05:59 05:59 05:59 Intake Total 2340 300 Output Total 1300 450 Balance 1040 -150 PT 12.8 SEC (12.0-15.0) 01/29/19 17:25 INR 1.00 (0.83-1.16) 01/29/19 17:25 - Time Spent With Patient Time Spent With Patient: 20 minutes Physical Exam - Physical Exam General Appearance: alert, no apparent distress EENT: PERRL/EOMI Abdomen: non-tender, soft Skin: No rash Neuro/Psych: alert, normal mood/affect ICD10 Worksheet Patient Problems: Problems Problem Status Onset Metastatic breast cancer Acute SVC syndrome Acute
[2019-02-01] MEDS: LOPERAMIDE HCL 2 MG CAP PO PRN (14:28)
[2019-02-01] MEDS ORDERED: ALTEPLASE 2 MG VIAL IVP PRN (17:49)
--- NOTE | 2019-02-01 17:50 | ASMTCMCOM ---
CM Note CM Note Notes: Met with Pt and who will visit SNF's in the morning. will let CM know which they choose. Pt is feeling better today. CM available for needs. PLAN: SNF which on pending. Date Signed: 02/01/2019 05:49 PM Electronically Signed By:Amira Hermosillo
[2019-02-01] MEDS: MIRTAZAPINE 15 MG ODTAB PO SCH (20:12)
[2019-02-02 03:36] LABS: PLATELET COUNT 129 10^3/uL (150-400)
[2019-02-02] MEDS: MEMANTINE HCL 5 MG TAB PO SCH (08:17)
[2019-02-02] MEDS: LOPERAMIDE HCL 2 MG CAP PO PRN (08:17)
[2019-02-02] MEDS: DEXAMETHASONE 4 MG TAB PO SCH (08:17)
[2019-02-02] MEDS ORDERED: cefTRIAXone 1 GM in D5W 50 ML IV SCH (09:00)
--- NOTE | 2019-02-02 10:55 | PDIAF ---
- Diagnosis Diagnosis: metastatic breast cancer Code Status: Full Code - Medication Management Discharge Medications: electronically signed and located in the Home Medication List. - Orders Services needed: Physical Therapy, Occupational Therapy Isolation Type: None Diet Recommendation: no restrictions on diet - Follow Up Care Current Providers and Referrals: Valencia Alvarado MD [Primary Care Provider] - Karl Thomas MD [Medical Doctor] -
--- NOTE | 2019-02-02 11:51 | ASMTCMCOM ---
CM Note CM Note Notes: Pt reviewed in rounds and met with Pt/ who will go see [facility] this morning. Updates, discharge orders, and Passr sent to [facility]. Also, I called in the Chemo list to [facility] per her request. Teagn Mariano (photographers' model) met with Pt/ to discuss: end of life and Palliative care. Pt is open to doing Outpatient Palliative care. CM available for needs. PLAN: Discharge to [facility] Date Signed: 02/02/2019 11:50 AM Electronically Signed By:Amira Hermosillo
[2019-02-02 13:50] VITALS: BP 137/76
--- NOTE | 2019-02-02 17:32 | CPEKG ---
Test Reason : OPEN Blood Pressure : / mmHG Vent. Rate : 110 BPM Atrial Rate : 110 BPM P-R Int : 179 ms QRS Dur : 070 ms QT Int : 324 ms P-R-T Axes : 041 056 038 degrees QTc Int : 439 ms Sinus tachycardia Ventricular premature complex Aberrant conduction of SV complex(es) Left atrial enlargement Low voltage, extremity and precordial leads Consider anterior infarct Borderline ST elevation, lateral leads Confirmed by Jessica Schulz ([id number]) on 02/02/2019 5:31:26 PM Referred By: Jessica Schulz Confirmed By:Jessica Schulz
--- NOTE | 2019-02-03 04:17 | GDS ---
[f rep st] DISCHARGE SUMMARY DISCHARGE DIAGNOSES: 1. Metastatic breast cancer. 2. Severe protein-calorie malnutrition. 3. Malignant pleural effusion. 4. 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 5. Chemotherapy-induced pancytopenia. HISTORY: The patient is a 68-year-old female with history of metastatic breast cancer presenting wit h fatigue and weakness. She also developed diarrhea. She was on a new chemo regimen. Oncology feel s the chemo was the likely cause of her diarrhea. Her C difficile was negative. She is responding n icely to Imodium and has been able to maintain hydration. She has had a 45-pound weight loss over last several months. She was counseled regarding additional nutritional support and offered nutrit ional smoothies with each meal. She will transfer to [facility] for rehabilitation. DISCHARGE MEDICATIONS: Please see computerized record for full detailed list. New medications: Imo dium 2 mg 4 times a day as needed. ADDITIONAL DISCHARGE INSTRUCTIONS: Transfer to [facility] for further rehabilitation. Greater than 30 minutes' time spent arranging this discharge. Patient was seen and examined by me on the day of discharge. /[id number]/MODL
--- NOTE | 2019-02-04 15:11 | ASDISCHSUM ---
Discharge Information Plan Status:SNF Medically Cleared to Leave: Discharge Date:02/02/2019 03:16 PM D/C Disposition:Senior Living Facility ADT D/C Disposition:Senior Living Facility Projected Discharge Date:02/02/2019 11:00 AM Transportation at D/C: Discharge Delay Reason: Follow-Up Date:02/02/2019 11:00 AM Discharge Slot: Final Diagnosis: Placement Information Referral Type:*Fpc/SNF Referral ID:[id number] Provider Name:Arjun celestin [place] Address 1:[address] [facility] Address 2: [facility] Selection Factors: State:[place] Patient Contact Information Contact Name:HIMANSHUNICOLEJEMMA Relationship: Address:[id number] [place] [address] City:[place] Alternate Phone: State/Zip Code:[place] [address] Email: Financial Information Financial Class:Medicare Primary Plan Desc:MEDICARE INPATIENT Primary Plan Number:[id number] Secondary Plan Desc:[employer]/MDR SUPPLEMENT Secondary Plan Number:[id number] Assessment Information [facility] CM Progress Note CM Note CM Note Notes: Patient admitted with increased fatigue and weakness in setting of new chemo regime for metastatic breast cancer. She lives at home with who reports that she hasn't really been out of bed in weeks. Her last admission to [facility] was in October of this year; she discharged home with [facility] RN/PT/OT and had these services through November. PT/OT evals ordered and pending. Case Management will follow. Date Signed: 01/30/2019 10:04 AM Electronically Signed By:Sharla Colby RN [facility] CM Progress Note CM Note CM Note Notes: PT/OT and providers all suggesting SNF. I spoke with patient about it, and she is amenable although she is not familiar with any facilities. I gave her a Senior Blue Book and sent five preliminary referrals based on where she lives. She and her will review, and Case Management will follow. Date Signed: 01/30/2019 04:01 PM Electronically Signed By:Sharla Colby RN [facility] CM Progress Note CM Note CM Note Notes: Met with Pt and who will visit SNF's in the morning. will let CM know which they choose. Pt is feeling better today. CM available for needs. PLAN: SNF which on pending. Date Signed: 02/01/2019 05:49 PM Electronically Signed By:Amira Hermosillo [facility] CM Progress Note CM Note CM Note Notes: Pt reviewed in rounds and met with Pt/ who will go see [facility] this morning. Updates, discharge orders, and Passr sent to [facility]. Also, I called in the Chemo list to [facility] per her request. Tegan Mariano (patient care technician instructor) met with Pt/ to discuss: end of life and Palliative care. Pt is open to doing Outpatient Palliative care. CM available for needs. PLAN: Discharge to [facility] Date Signed: 02/02/2019 11:50 AM Electronically Signed By:Amira Hermosillo Intervention Information Intervention Type:*Incorrect Registration Date of Service:01/29/2019 09:52 AM Patient Type:Inpatient Staff Member:FESTUS Vega Courtney Hours: Discipline: Severity: Comment: Intervention Type:*IM-Signed Date of Service:02/02/2019 10:23 AM Patient Type:Inpatient Staff Member:Suze Sandhu Hours: Discipline: Severity: Comment:
== END 2019-02-02 15:16 | DRG 391 ==
LOC: OBSVTOIN 18:44 → F1N 19:59
PROVIDERS: ADMIT Internal Medicine; ATTEND Internal Medicine
DX: R19.7 Diarrhea, unspecified (principal); R53.1 Weakness; R53.83 Other fatigue; T45.1X5A Adverse effect of antineoplastic and immunosuppressive drugs, initial encounter; E43 Unspecified severe protein-calorie malnutrition; D61.810 Antineoplastic chemotherapy induced pancytopenia; C79.31 Secondary malignant neoplasm of brain; C78.00 Secondary malignant neoplasm of unspecified lung; C79.51 Secondary malignant neoplasm of bone; C78.7 Secondary malignant neoplasm of liver and intrahepatic bile duct; C79.49 Secondary malignant neoplasm of other parts of nervous system; C78.2 Secondary malignant neoplasm of pleura; J91.0 Malignant pleural effusion; I87.1 Compression of vein; R74.0 Nonspecific elevation of levels of transaminase and lactic acid dehydrogenase [LDH]; Z85.3 Personal history of malignant neoplasm of breast; Z91.81 History of falling
CPT/HCPCS: 84134-90; 86300-90; 97110-GO; 97110-GP; 97161-GP; 97165-GO; 97530-GP; 97535-GO; J0696; J1642; J1650; J2997; Q9967

== ENCOUNTER → 2019-02-17 | Outpatient (CLI) | payer OTHER, MEDICARE | LOC: BHFA 15:30 | PROVIDERS: ATTEND Internal Medicine Cardiovascular Disease | DX: Z51.11 Encounter for antineoplastic chemotherapy (principal) ==

== ENCOUNTER 2019-02-23 10:01 | Observation (INO) | payer OTHER, MEDICARE ==
--- NOTE | 2019-02-23 10:09 | EDPHY ---
H & P Time Seen by Provider: 02/23/19 10:08 HPI/ROS: CHIEF COMPLAINT: Increasing shortness of breath since day before yesterday HISTORY OF PRESENT ILLNESS: History of metastatic breast cancer with also history of pneumonia and SVC syndrome with stenting. Presents with worsening shortness of breath over the last 36 hr. Severe and worse with exertion, she is not even able to go to the bathroom or do anything today without being short of breath. Not associated with cough fever or chest pain. REVIEW OF SYSTEMS: Eye: no change in vision ENT: no sore throat Cardiac: no chest pain or syncope Pulmonary: HPI Abdomen: No vomiting or abdominal pain, does have some diarrhea which is getting better Musculoskeletal: No leg swelling Skin: no rash Neuro: no headache Constitutional: no fever : no urinary symptoms A comprehensive 10 point review of systems is otherwise negative aside from elements mentioned in the history of present illness. PAST MEDICAL HISTORY: Metastatic breast cancer, pneumonia, left wrist fracture , left subclavian port, SVC syndrome with stent. Social history: Nonsmoker, oncologist is Dr. Karl Thomas General Appearance: Alert and conversant, cooperative. Eyes: No scleral icterus. ENT, Mouth: Normal mucous membranes. Respiratory: Decreased breath sounds on the right side fci up. Does appear tachypneic and short of breath. Cardiovascular: Regular rate and rhythm. Gastrointestinal: Abdomen is soft and non tender. Neurological: Alert, face symmetric, normal motor and sensory in extremities. Skin: Warm and dry, no rashes. Musculoskeletal: No peripheral edema. No calf tenderness. Psychiatric: Not agitated. Emergency Department course/MDM: Plan for chest x-ray EKG and D-dimer. More likely to be pulmonary embolism or effusion, less likely to be ACS or anemia or pneumonia. 1125: d-dimer >2, CTA ordered. 1246: Teodoro for Kat Casey, will admit for hospitalist. More likely to be fluid overload with CT findings and hyponatremia, does not appear to require anticoagulation or antibiotics at this time. Afebrile, no cough, normal WBC. 1305: Dr. Thomas aware. 1320: Dr. Arteaga for echo result; was normal without LV dysfunction or effusion at that time, last week. Smoking Status: Never smoked Constitutional: Initial Vital Signs Temperature (C) 37 C 02/23/19 10:04 Heart Rate 103 H 02/23/19 10:04 Respiratory Rate 30 H 02/23/19 10:04 Blood Pressure 116/78 02/23/19 10:04 O2 Sat (%) 95 02/23/19 10:04 O2 Delivery Mode Nasal Cannula O2 (L/minute) 2 Allergies/Adverse Reactions: codeine [Codeine] Allergy (Verified 01/29/19 16:29) Vomiting latex Allergy (Verified 01/29/19 16:29) oxycodone HCl [From Percocet] Allergy (Verified 01/29/19 16:29) feels ill prochlorperazine [From Compazine] Allergy (Verified 01/29/19 16:29) swelling underneath ears Home Medications: Medication Instructions Recorded Memantine HCl [Namenda 10 mg] 10 mg PO BID 11/04/18 Herbals/Supplements -Info Only 1 ea PO DAILY 01/29/19 Mirtazapine [Remeron soltab 15 mg 15 mg PO HS 01/29/19 (*)] Loperamide HCl [Imodium 2 mg (*)] 2 mg PO QID PRN #30 cap 02/02/19 Dexamethasone [Decadron 4 MG (*)] 2 mg PO DAILY 02/23/19 Ibuprofen [Advil Liqui-Gels] 400 mg PO Q6HRS PRN 02/23/19 Medical Decision Making - Diagnostics EKG Interpretation: 12-lead EKG interpreted by me; official reading is in computer system. My interpretation is sinus rhythm rate 97 with low voltage in all leads. Imaging Results: Imaging Impressions Chest X-Ray 02/23/19 10:23 Impression: 1. Increased size right apical loculation. 2. Worsening bibasilar atelectasis. Chest/Thorax CTA 02/23/19 11:25 Impression: 1. Negative for acute pulmonary embolus. 2. When compared to the prior examination, there has been interval development of bilateral perihilar groundglass opacities. There is also intralobular septal thickening and peripheral groundglass opacities at the left lung apex. Findings may represent edema and/or an infectious process. 3. Interval development of probably infectious nodules in the left lower lobe. 4. Trace to small bilateral pleural effusions have increased in size since the last study. The loculated right apical effusion is unchanged. 5. Diffuse osseous metastatic disease is again seen. There is also soft tissue in the mediastinum, predominantly near the subcarinal region and SVC where stent which appears patent is noted. 6. Redemonstration of a retroareolar collection in the right breast measuring 3.4 x 3.0 cm, possibly a hematoma or seroma. Findings and recommendations discussed with ALTHEA FERRELL at 1241 hour, 2018. Differential Diagnosis: Differential diagnosis considered for shortness of breath including but not limited to pulmonary infectious process, COPD, asthma, pulmonary embolus and congestive heart failure. - Data Points Laboratory Results: Laboratory Results 02/23/19 10:45 02/23/19 10:45 02/23/19 02/23/19 02/23/19 10:52 10:45 10:45 WBC RBC Hgb POC Hgb 10.2 gm/dL L gm/dL (12.6-16.3) Hct POC Hct 30 % L % (38-47) MCV MCH MCHC RDW Plt Count MPV Neut % (Auto) Lymph % (Auto) [place] % (Auto) Eos % (Auto) Baso % (Auto) Nucleat RBC Rel Count Absolute Neuts (auto) Absolute Lymphs (auto) Absolute Monos (auto) Absolute Eos (auto) Absolute Basos (auto) Absolute Nucleated RBC Immature Gran % Seg Neutrophils % Band Neutrophils % Lymphocytes % Monocytes % Eosinophils % Basophils % Metamyelocytes % Myelocytes % Promyelocytes % Blast Cells % Immature Gran # Absolute Seg Neuts Absolute Band Neuts Absolute Lymphocytes Absolute Monocytes Absolute Eosinophils Absolute Basophils Absolute Metamyelocyte Absolute Myelocytes Absolute Promyelocytes Absolute Plasma Cells Nucleated RBCs Absolute Blast Cells Plasma Cells % Platelet Estimate Polychromasia Microcytic Cells D-Dimer 2.04 ug/mLFEU H ug/mLFEU (0.00-0.50) POC Sodium 126 mEq/L L mEq/L (135-145) Sodium 123 mEq/L L mEq/L (135-145) POC Potassium 4.0 mEq/L mEq/L (3.3-5.0) Potassium 4.7 mEq/L mEq/L (3.5-5.2) POC Chloride 94 mEq/L L mEq/L (97-110) Chloride 95 mEq/L L mEq/L (97-110) Carbon Dioxide 20 mEq/l L mEq/l (22-31) POC Total CO2 24 mEq/L mEq/L (22-31) Anion Gap 8 mEq/L mEq/L (6-14) POC BUN 9 mg/dL mg/dL (7-23) BUN 10 mg/dL mg/dL (7-23) Creatinine 0.4 mg/dL L mg/dL (0.6-1.0) POC Creatinine 0.4 mg/dL L mg/dL (0.6-1.0) Estimated GFR > 60 Glucose 90 mg/dL mg/dL (70-100) POC Glucose 95 mg/dL mg/dL (70-100) Calcium 8.0 mg/dL L mg/dL (8.5-10.4) 02/23/19 10:45 WBC 3.84 10^3/uL 10^3/uL (3.80-9.50) RBC 3.34 10^6/uL L 10^6/uL (4.18-5.33) Hgb 10.0 g/dL L g/dL (12.6-16.3) POC Hgb Hct 29.9 % L % (38.0-47.0) POC Hct MCV 89.5 fL fL (81.5-99.8) MCH 29.9 pg pg (27.9-34.1) MCHC 33.4 g/dL g/dL (32.4-36.7) RDW 19.0 % H % (11.5-15.2) Plt Count 174 10^3/uL 10^3/uL (150-400) MPV 9.5 fL fL (8.7-11.7) Neut % (Auto) Not Reported Lymph % (Auto) Not Reported [place] % (Auto) Not Reported Eos % (Auto) Not Reported Baso % (Auto) Not Reported Nucleat RBC Rel Count Not Reported Absolute Neuts (auto) Not Reported Absolute Lymphs (auto) Not Reported Absolute Monos (auto) Not Reported Absolute Eos (auto) Not Reported Absolute Basos (auto) Not Reported Absolute Nucleated RBC Not Reported Immature Gran % Not Reported Seg Neutrophils % 67.4 % % Band Neutrophils % 6.1 % % Lymphocytes % 11.2 % % Monocytes % 13.3 % % Eosinophils % 0.0 % % Basophils % 0.0 % % Metamyelocytes % 1.0 % % Myelocytes % 1.0 % % Promyelocytes % 0.0 % % Blast Cells % 0.0 % % Immature Gran # Not Reported Absolute Seg Neuts 2.59 10^3/uL 10^3/uL (1.70-6.50) Absolute Band Neuts 0.23 10^3/uL 10^3/uL (0.00-0.70) Absolute Lymphocytes 0.43 10^3/uL L 10^3/uL (1.00-3.00) Absolute Monocytes 0.51 10^3/uL 10^3/uL (0.30-0.80) Absolute Eosinophils 0.00 10^3/uL L 10^3/uL (0.03-0.40) Absolute Basophils 0.00 10^3/uL L 10^3/uL (0.02-0.10) Absolute Metamyelocyte 0.04 10^3/mL H 10^3/mL (0.00-0.00) Absolute Myelocytes 0.04 10^3/mL H 10^3/mL (0.00-0.00) Absolute Promyelocytes 0.00 10^3/uL 10^3/uL (0.00-0.00) Absolute Plasma Cells 0.00 10^3/uL 10^3/uL (0.00-0.00) Nucleated RBCs 2.0 /100 WBC H /100 WBC (0-0) Absolute Blast Cells 0.00 10^3/uL 10^3/uL (0.00-0.00) Plasma Cells % 0.0 % % Platelet Estimate ADEQUATE (ADEQ) Polychromasia 1+ H Microcytic Cells 1+ H D-Dimer POC Sodium Sodium POC Potassium Potassium POC Chloride Chloride Carbon Dioxide POC Total CO2 Anion Gap POC BUN BUN Creatinine POC Creatinine Estimated GFR Glucose POC Glucose Calcium Point of Care Test Results: Chemistry 02/23/19 10:52 POC Sodium 126 mEq/L L mEq/L (135-145) POC Potassium 4.0 mEq/L mEq/L (3.3-5.0) POC Chloride 94 mEq/L L mEq/L (97-110) POC Total CO2 24 mEq/L mEq/L (22-31) POC BUN 9 mg/dL mg/dL (7-23) POC Creatinine 0.4 mg/dL L mg/dL (0.6-1.0) POC Glucose 95 mg/dL mg/dL (70-100) ISTAT H&H 02/23/19 10:52 POC Hgb 10.2 gm/dL L gm/dL (12.6-16.3) POC Hct 30 % L % (38-47) Departure - Departure Disposition: [facility] Inpatient Acute Clinical Impression: Hyponatremia Dyspnea Qualifiers: Dyspnea type: unspecified Qualified Code(s): R06.00 - Dyspnea, unspecified Condition: Fair
[2019-02-23 11:04] LABS: PLATELET COUNT 174 10^3/uL (150-400)
--- NOTE | 2019-02-23 11:19 | CPEKG ---
Test Reason : OPEN Blood Pressure : / mmHG Vent. Rate : 097 BPM Atrial Rate : 097 BPM P-R Int : 176 ms QRS Dur : 080 ms QT Int : 331 ms P-R-T Axes : 022 037 032 degrees QTc Int : 421 ms Sinus rhythm Low voltage, extremity and precordial leads Confirmed by Getachew Haddad ([id number]) on 02/23/2019 11:19:25 AM Referred By: Getachew Haddad Confirmed By:Getachew Haddad
[2019-02-23] MEDS ORDERED: IOPAMIDOL (ISOVUE 370) 100 ML BTL IV ONE (11:49)
--- NOTE | 2019-02-23 13:08 | PDGENHP ---
History and Physical - Chief Complaint shortness of breath - History of Present Illness The patient is a 68-year-old female with past medical history of stage IV metastatic breast cancer with diffuse metastatic disease along with SVC syndrome who presents to the emergency room with complaints of 2 days of dyspnea. She says that for approximately the last 2 days she has had increasing shortness of breath particularly with ambulation. She denied any new cough, fevers, chills or infectious symptoms. She denied any new lower extremity edema. She denied any orthopnea or chest pain. Of note the patient was told to drink 3x32 oz bottles of water per day to stay hydrated and so has been pushing herself to drink as much fluids as possible. She denied any new dysuria diarrhea hematuria abdominal pain melena hematochezia cough or other symptoms. History Information - Allergies/Home Medication List Allergies/Adverse Reactions: codeine [Codeine] Allergy (Verified 01/29/19 16:29) Vomiting latex Allergy (Verified 01/29/19 16:29) oxycodone HCl [From Percocet] Allergy (Verified 01/29/19 16:29) feels ill prochlorperazine [From Compazine] Allergy (Verified 01/29/19 16:29) swelling underneath ears Home Medications: Memantine HCl [Namenda 10 mg] 10 mg PO BID 11/04/18 [Last Taken 02/23/19 09:00] Herbals/Supplements -Info Only 1 ea PO DAILY 01/29/19 [Last Taken 01/29/19] Mirtazapine [Remeron soltab 15 mg (*)] 15 mg PO HS 01/29/19 [Last Taken 02/22/19 ] Dexamethasone [Decadron 4 MG (*)] 2 mg PO DAILY 02/23/19 [Last Taken 02/23/19 09 :00] Ibuprofen [Advil Liqui-Gels] 400 mg PO Q6HRS PRN 02/23/19 [Last Taken Unknown] I have personally reviewed and updated: family history, medical history, social history, surgical history - Past Medical History cancer (metastatic breast cancer--mets to liver, lung and brain s/p surgery/ chemo/radiation) Additional medical history: SVC syndrome - Surgical History Reports: cancer surgery (lumpectomy) Additional surgical history: PORT, ORIF wrist, SVC stent - Family History Positive for: non-pertinent - Social History Smoking Status: Never smoked Additional social history: Review of Systems Review of Systems: ROS: 10pt was reviewed & negative except for what was stated in HPI & below Physical Exam Physical Exam: Temp Pulse Resp BP Pulse Ox 37.1 C 99 30 H 134/76 H 97 02/23/19 12:34 02/23/19 12:34 02/23/19 12:34 02/23/19 12:34 02/23/19 12:34 Lab Data & Imaging Review 02/23/19 10:45 02/23/19 15:22 WBC 3.84 10^3/uL (3.80-9.50) 02/23/19 10:45 RBC 3.34 10^6/uL (4.18-5.33) L 02/23/19 10:45 Hgb 10.0 g/dL (12.6-16.3) L 02/23/19 10:45 POC Hgb 10.2 gm/dL (12.6-16.3) L 02/23/19 10:52 Hct 29.9 % (38.0-47.0) L 02/23/19 10:45 POC Hct 30 % (38-47) L 02/23/19 10:52 MCV 89.5 fL (81.5-99.8) 02/23/19 10:45 MCH 29.9 pg (27.9-34.1) 02/23/19 10:45 MCHC 33.4 g/dL (32.4-36.7) 02/23/19 10:45 RDW 19.0 % (11.5-15.2) H 02/23/19 10:45 Plt Count 174 10^3/uL (150-400) 02/23/19 10:45 MPV 9.5 fL (8.7-11.7) 02/23/19 10:45 Neut % (Auto) Not Reported 02/23/19 10:45 Lymph % (Auto) Not Reported 02/23/19 10:45 [place] % (Auto) Not Reported 02/23/19 10:45 Eos % (Auto) Not Reported 02/23/19 10:45 Baso % (Auto) Not Reported 02/23/19 10:45 Nucleat RBC Rel Count Not Reported 02/23/19 10:45 Absolute Neuts (auto) Not Reported 02/23/19 10:45 Absolute Lymphs (auto) Not Reported 02/23/19 10:45 Absolute Monos (auto) Not Reported 02/23/19 10:45 Absolute Eos (auto) Not Reported 02/23/19 10:45 Absolute Basos (auto) Not Reported 02/23/19 10:45 Absolute Nucleated RBC Not Reported 02/23/19 10:45 Immature Gran % Not Reported 02/23/19 10:45 Seg Neutrophils % 67.4 % 02/23/19 10:45 Band Neutrophils % 6.1 % 02/23/19 10:45 Lymphocytes % 11.2 % 02/23/19 10:45 Monocytes % 13.3 % 02/23/19 10:45 Eosinophils % 0.0 % 02/23/19 10:45 Basophils % 0.0 % 02/23/19 10:45 Metamyelocytes % 1.0 % 02/23/19 10:45 Myelocytes % 1.0 % 02/23/19 10:45 Promyelocytes % 0.0 % 02/23/19 10:45 Blast Cells % 0.0 % 02/23/19 10:45 Immature Gran # Not Reported 02/23/19 10:45 Absolute Seg Neuts 2.59 10^3/uL (1.70-6.50) 02/23/19 10:45 Absolute Band Neuts 0.23 10^3/uL (0.00-0.70) 02/23/19 10:45 Absolute Lymphocytes 0.43 10^3/uL (1.00-3.00) L 02/23/19 10:45 Absolute Monocytes 0.51 10^3/uL (0.30-0.80) 02/23/19 10:45 Absolute Eosinophils 0.00 10^3/uL (0.03-0.40) L 02/23/19 10:45 Absolute Basophils 0.00 10^3/uL (0.02-0.10) L 02/23/19 10:45 Absolute Metamyelocyte 0.04 10^3/mL (0.00-0.00) H 02/23/19 10:45 Absolute Myelocytes 0.04 10^3/mL (0.00-0.00) H 02/23/19 10:45 Absolute Promyelocytes 0.00 10^3/uL (0.00-0.00) 02/23/19 10:45 Absolute Plasma Cells 0.00 10^3/uL (0.00-0.00) 02/23/19 10:45 Nucleated RBCs 2.0 /100 WBC (0-0) H 02/23/19 10:45 Absolute Blast Cells 0.00 10^3/uL (0.00-0.00) 02/23/19 10:45 Plasma Cells % 0.0 % 02/23/19 10:45 Platelet Estimate ADEQUATE (ADEQ) 02/23/19 10:45 Polychromasia 1+ H 02/23/19 10:45 Microcytic Cells 1+ H 02/23/19 10:45 D-Dimer 2.04 ug/mLFEU (0.00-0.50) H 02/23/19 10:45 POC Sodium 126 mEq/L (135-145) L 02/23/19 10:52 Sodium 123 mEq/L (135-145) L 02/23/19 10:45 POC Potassium 4.0 mEq/L (3.3-5.0) 02/23/19 10:52 Potassium 4.7 mEq/L (3.5-5.2) 02/23/19 10:45 POC Chloride 94 mEq/L (97-110) L 02/23/19 10:52 Chloride 95 mEq/L (97-110) L 02/23/19 10:45 Carbon Dioxide 20 mEq/l (22-31) L 02/23/19 10:45 POC Total CO2 24 mEq/L (22-31) 02/23/19 10:52 Anion Gap 8 mEq/L (6-14) 02/23/19 10:45 POC BUN 9 mg/dL (7-23) 02/23/19 10:52 BUN 10 mg/dL (7-23) 02/23/19 10:45 Creatinine 0.4 mg/dL (0.6-1.0) L 02/23/19 10:45 POC Creatinine 0.4 mg/dL (0.6-1.0) L 02/23/19 10:52 Estimated GFR > 60 02/23/19 10:45 Glucose 90 mg/dL (70-100) 02/23/19 10:45 POC Glucose 95 mg/dL (70-100) 02/23/19 10:52 Calcium 8.0 mg/dL (8.5-10.4) L 02/23/19 10:45 Assessment & Plan Assessment: 68 year old female with widely metastatic breast cancer, admitted with dyspnea and hyponatremia. Dyspnea- Etiology not entirely clear, but no obvious infection. I reviewed her CT scan showing no acute PE, milldy larger effusions, and stable right apical loculated effusions. she has no crackles on examination, and no oxygen requirement. BNP normal, procalcitonin pending, respiratory panel pending as well. No white count and patient denied any cough to me. -Echo done last week. I discussed with ER physician who spoke with Dr. Arteaga who relayed that echo was normal. -May be due to mild increase in fluid status. -trial of lasix 20mg PO -fluid restriction. Hyponatremia- etiology either siadh in setting of brain mets or possibly polydipsia as patient drinking large amounts of free water. 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 -fluid restriction -encourage salt -trial of low dose oral lasix -repeat Na tonight Normocytic anemia- chronic and stable. Likely secondary to malignancy and chemotherapy. No indication for transfusion Hypocalcemia- serum calcium 8, but anticipate corrects to normal when adjusted for albumin. albumin pending. if needed will give calcium gluconate. SVC syndrome- stent placed here. appears patent. not on anticoagulation Stage IV metastatic breast cancer- Follows with Dr. Thomas. Due for chemo next week. Case discussed with beef boner oncologist who has agreed to see patient. Protein calorie malnutrition- patient with weight loss, started on dexamethasone for this, which could be contributing to fluid retention and hyponatremia. Will cont however, for now. PPX- SCDs, Lovenox Fluids- restriction to 1L Nutrition- regular diet Cor- Full Dispo- observation for hyponatremia, dyspnea.
[2019-02-23] MEDS ORDERED: LORazepam 0.5 MG TAB PO PRN (13:27)
[2019-02-23] MEDS ORDERED: ACETAMINOPHEN 325 MG TAB PO PRN (13:27)
[2019-02-23] MEDS ORDERED: ONDANSETRON 4 MG/2 ML VIAL IVP PRN (13:27)
[2019-02-23] MEDS ORDERED: ONDANSETRON DISINTEGRATING 4 MG TAB PO PRN (13:27)
[2019-02-23] MEDS ORDERED: LOPERAMIDE HCL 2 MG CAP PO PRN (13:31)
[2019-02-23] MEDS ORDERED: FUROSEMIDE 20 MG TAB PO ONE (15:03)
--- NOTE | 2019-02-23 20:40 | GCON ---
[f rep st] CONSULTATION HEMATOLOGY/ONCOLOGY CONSULTATION DATE OF CONSULTATION: 02/23/2019 REASON FOR CONSULTATION: Dyspnea, metastatic breast cancer. HISTORY OF PRESENT ILLNESS: Mrs. Thomas is a 68-year-old woman with a history of metastatic breast cancer, who presented to the emergency room today with a 2- day history of dyspnea. She notes dyspnea on exertion with fairly minimal exertion occurring over the past couple of days. She feels somewhat better when she uses oxygen. She was not previously using supplemental oxygen on a regular basis. She has had low-grade temperatures (100.4) approximately daily since August. She feels "wiped out" when those occur, but there has been no recent change. No ill contacts. On presentation to the emergency room, 95% on room air, 98% on 2 L. On admission today, she was also found to have hyponatremia with a sodium of 123. Most recent prior sodium 138 (02/10/2019). She has been drinking a significant amount of water, 96 ounces yesterday, on the advice of a nurse friend. 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 She received weekly Taxol/Herceptin x12 as adjuvant therapy. 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 Diffuse brain metastases were seen on brain MRI. She underwent whole-brain radiation (completed 2018). Most recent brain MRI (01/12/2019) demonstrated essentially stable disease. PET scan at time of recurrence last year, demonstrated significant mediastinal adenopathy with impending SVC syndrome. SVC stent was placed and she was initially anticoagulated, but discontinued due to recurrent epistaxis. Re-biopsy of an axillary node demonstrated recurrent breast cancer, ER/DC negative, HER2 IHC 2+, FISH positive. She received 4 cycles of TDM 1. At the time of progression, she changed to Taxol/Herceptin/pertuzumab. She received 1 cycle of 3 drug therapy (01/21/2019), complicated by severe diarrhea requiring hospitalization. Pertuzumab was omitted from her regimen. She received cycle 2 of Taxol (175 mg/m2)/Herceptin, 02/10/2019. Sample was sent for Foundation 1 testing, which demonstrated PDL1 negative. I do not see a complete foundation 1 panel, particularly BRCA results. PAST MEDICAL HISTORY: Per HPI. PAST SURGICAL HISTORY: 1. Hip replacement. 2. Wrist ORIF. 3. SVC stent. SOCIAL HISTORY: She is and lives outside [place]. FAMILY HISTORY: Her father had myeloma, but of other causes. She has not had genetic testing to my knowledge. REVIEW OF SYSTEMS: CONSTITUTIONAL: She has had increased fatigue, fever, per HPI. She has been taking dexamethasone 2 mg daily, which is taper dose, for appetite. HEENT: No oral ulcers. CARDIOVASCULAR: No chest pain, palpitations , PND, orthopnea, or significant lower extremity edema. RESPIRATORY: Per HPI. GI: No nausea, vomiting, abdominal pain. Very mild diarrhea occasionally. MUSCULOSKELETAL: No new complaints. NEUROLOGIC: No headache, new neurologic symptoms. HEMATOLOGIC: Frequent nosebleeds. PHYSICAL EXAM: VITAL SIGNS: Blood pressure 125/76, pulse 96, respirations 20, 98% on 2 L. Temperature 36.9. GENERAL: Pleasant woman in no acute distress. HEENT: No scleral icterus. NECK: Supple. CARDIOVASCULAR: Regular rate and rhythm. No pretibial edema. LUNGS: Clear to auscultation bilaterally. ABDOMEN: Positive bowel sounds. Soft, nontender, nondistended without palpable hepatosplenomegaly. SKIN: Left upper chest port without erythema or tenderness. MUSCULOSKELETAL: No joint abnormalities. NEUROLOGIC: Grossly nonfocal. LABORATORY DATA: Sodium 123, potassium 4.7, chloride 95, bicarbonate 20, BUN 10 , creatinine 0.4, glucose 90. BNP 103. WBC 3.84, ANC 2.59, hemoglobin 10, platelets 174,000. Urine sodium 80, urine osmolalities 398. IMAGING: CT angiogram demonstrated no evidence of PE. Interval development of bilateral perihilar opacities in comparison with 01/29/2019. Intralobular septal thickening in the left upper lung. [id number] bilateral pleural effusions, increased from last study. Unchanged loculated right apical effusion. Diffuse osseous metastatic disease. She had a limited echo last week. Report is not available, but reportedly Dr. Martinez received a verbal report that this was normal without a change in EF, and no pericardial effusion. IMPRESSION: 1. Dyspnea: She is not hypoxic on room air. She has no evidence of pulmonary embolus or significant progressive disease by CT scan. She may have some volume overload and has received a small dose of Lasix. We will follow. 2. Hyponatremia: This is new since 02/10/2019 and may be attributed to her significant free water intake over the last couple of days. She will be on a fluid restriction and we will follow. No aggressive correction. 3. Metastatic HER2 positive breast cancer: She will be due for cycle 3 of Taxol/Herceptin 03/03/2019. She will be due for Zometa at that time as well. She has no evidence of progression to explain her current symptoms. 4. Brain metastases status post whole brain radiation therapy: While brain metastases can cause hyponatremia, she has no new neurologic symptoms, brain MRI just over a month ago was stable, and her excess fluid intake is the likely explanation. /[id number]/MODL MTDD
[2019-02-23] MEDS: MIRTAZAPINE 15 MG ODTAB PO SCH (20:56)
[2019-02-23] MEDS: MEMANTINE HCL 5 MG TAB PO SCH (20:56)
[2019-02-24 03:58] LABS: PLATELET COUNT 158 10^3/uL (150-400)
[2019-02-24] MEDS: MEMANTINE HCL 5 MG TAB PO SCH ×2 (08:01→20:00)
[2019-02-24] MEDS: DEXAMETHASONE 4 MG TAB PO SCH (08:02)
[2019-02-24] MEDS: ENOXAPARIN 40 MG/0.4 ML SYR SC SCH (08:07)
[2019-02-24] MEDS ORDERED: ALBUTEROL 3 ML DEYVIAL IH PRN (13:02)
[2019-02-24] MEDS ORDERED: ALBUTEROL 60 PUFFS/8 GM MDI IH PRN (13:02)
--- NOTE | 2019-02-24 17:16 | ASMTCMCOM ---
CM Note CM Note Notes: Pt discussed in rounds and chart reviewed for discharge planning. [place] was admitted with Dyspnea with exertion and placed on oxygen. Pt with a history of stage 4 Breast Cancer and doing Chemo-treatments, next 03/03/19 . Brain metastasis s/p Brain MRI. SVC Stent, Hip replacement. Pt lives with her outside of [place] Dr Kenney consulted today. CM available for needs. PLAN: Likely discharge home with when medically stable. Date Signed: 02/24/2019 05:15 PM Electronically Signed By:Amira Hermosillo
--- NOTE | 2019-02-24 18:00 | SOAPPROG ---
SOAP Progress Note Assessment/Plan: Assessment: 1. Dyspnea-increased per patient from baseline. Not clear if she is more hypoxic from baseline. Room air sats at rest in low 90's. No evidence of PE. Has chronic right loculated apical effusion which is unchanged. CT notable for new nodular infiltrates in LLL compared to January 29 CT (no fever) and ground glass perihilar changes suggestive of fluid overload. On taxol/herceptin, both can cause pneumonitis, but this appears unlikely given the time course ( received 2nd cycle on February 10). 2. 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 3. Hyponatremia-improved today with fluid restriction. Subjective: still feels SOB, especially with movement Objective: Vital Signs Temp Pulse Resp BP Pulse Ox 36.8 C 105 H 18 104/67 92 02/24/19 15:03 02/24/19 15:03 02/24/19 15:03 02/24/19 15:03 02/24/19 15:03 Microbiology 02/23/19 16:12 Respiratory Panel (PCR) - Final Nasal, Sinus - [place] Viral Transport No Organism Detected By Pcr Laboratory Results 02/24/19 03:50 02/24/19 15:35 02/23/19 02/24/19 02/25/19 05:59 05:59 05:59 Intake Total 450 500 Output Total 900 250 Balance -450 250 Physical Exam - Physical Exam General Appearance: alert, no apparent distress Respiratory: other (decreased breath sounds in right lung with diffuse crackles , left lung clear) Abdomen: non-tender, soft Extremities: No pedal edema ICD10 Worksheet Patient Problems: Problems Problem Status Onset Dyspnea Acute Hyponatremia Acute Metastatic breast cancer Acute SVC syndrome Acute Weakness Acute
[2019-02-24] MEDS: AZITHROMYCIN IV 500 MG in NS 250 ML IV SCH (18:26)
[2019-02-24] MEDS: MIRTAZAPINE 15 MG ODTAB PO SCH (20:00)
[2019-02-25] MEDS: AZITHROMYCIN IV 500 MG in NS 250 ML IV SCH (08:14)
[2019-02-25] MEDS: DEXAMETHASONE 4 MG TAB PO SCH (09:29)
[2019-02-25] MEDS: ENOXAPARIN 40 MG/0.4 ML SYR SC SCH (09:29)
[2019-02-25] MEDS: MEMANTINE HCL 5 MG TAB PO SCH (09:30)
[2019-02-25 12:12] VITALS: BP 106/64
--- NOTE | 2019-02-25 13:27 | SOAPPROG ---
SOAP Progress Note Assessment/Plan: Assessment: 1. Her2+ breast cancer 2. Pleural effusion feeling somewhat better. Respiratory decompensation likely due to volume overload +/- pneumonia. doubt taxane induced pneumonitis. Plan: - continue empiric abx - continue fluid restriction - ok to d/c as patient is back to baseline - next chemo due 03/04 - already scheduled 02/25/19 13:25 Subjective: feels back to baseline. Objective: exam: NAD, breathing comfortably Lungs: dullness @ R base CV RRR no MGR Abd: +BS NT ND Ext: no edema Vital Signs Temp Pulse Resp BP Pulse Ox 36.8 C 107 H 18 106/64 96 02/25/19 12:00 02/25/19 12:00 02/25/19 12:00 02/25/19 12:00 02/25/19 12:00 Laboratory Results 02/24/19 03:50 02/25/19 06:20 02/24/19 02/25/19 02/26/19 05:59 05:59 05:59 Intake Total 450 950 150 Output Total 900 950 2 Balance -450 0 148 ICD10 Worksheet Patient Problems: Problems Problem Status Onset Dyspnea Acute Hyponatremia Acute Metastatic breast cancer Acute SVC syndrome Acute Weakness Acute
--- NOTE | 2019-02-25 15:01 | PDIAF ---
- Diagnosis Code Status: Full Code - Medication Management Discharge Medications: electronically signed and located in the Home Medication List. - Orders Services needed: Home Care, Registered Nurse, Physical Therapy, Occupational Therapy Home Care Face to Face: I certify that this patient was under my care and that I had the required [id number] encounter meeting the encounter requirements on the discharge day. My findings support the fact that the patient is homebound as defined in Home Care Face to Face Continued: CMS Chapter 7 Medicare Benefits Manual 30.1.1 , The condition of the patient is such that there exists a normal inability to leave home and consequently, leaving home would require a considerable and taxing effort. Isolation Type: None Diet Recommendation: no restrictions on diet Diet Texture: Regular Texture Diet Additional Instructions: Resume activity as tolerated. Follow up with your oncologist at your appt on . stay hydrated but dont drink too much water. - Follow Up Care Current Providers and Referrals: Estela Souza MD [Primary Care Provider] - As per Instructions
--- NOTE | 2019-02-25 15:30 | PDDCSUM ---
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 CT scan of the chest was obtained which showed no pulmonary embolus but small bilateral effusions and possible infection. Her BNP was normal procalcitonin was 0.6 and a respiratory panel was negative. It was thought that maybe she was mildly fluid overloaded so she was given a dose of Lasix and fluid restricted. 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 Her fluid corrected at an appropriate rate. Her CT scan was reviewed Radiology which did think it was potentially consistent with a infection and so she was started on Rocephin and azithromycin for possible community-acquired pneumonia. Her oxygen requirement remained and through chart review it was noted that the patient previously had an oxygen requirement was sent home on the same amount of oxygen as she was currently requiring. She was discharged home to complete a course of 7 days of antibiotics for potential bacterial pneumonia. She was scheduled for follow-up with Oncology the following week. Disposition Home with home health New medications As noted in the medication reconciliation I spent over 30 min on the discharge of this patient
--- NOTE | 2019-02-25 16:12 | ASMTDCNOTE ---
Case Management Discharge Discharge Order Complete? Answers: Yes Followup Appointment 02/25/2019 12:00 AM Patient to Obtain Answers: via Family Medications Transportation Arranged Answers: Family/Friends Transport will Pick (Date 02/25/2019 12:00 AM & Time) Faxed Final Orders Answers: Yes Agency/Facility Transfer Answers: Yes Report Printed & Faxed to Receiving Agency Family Notified Answers: Yes Notes: in the room Discharge Comments Notes: CM spoke with pt in the room. Pt to discharge with [facility] with which she was already open. Discharge orders sent to [facility] and CM called to notify them. CM also sent referral to [facility] with whom pt signed on during this admission. No further CM needs noted at this time. Date Signed: 02/25/2019 04:10 PM Electronically Signed By:Joanne Méndez RN
--- NOTE | 2019-02-27 16:35 | ASDISCHSUM ---
Discharge Information Plan Status:Home with Home Health Medically Cleared to Leave:02/25/2019 Discharge Date:02/25/2019 03:14 PM CM D/C Disposition:[facility] Service [facility] Projected Discharge Date:02/25/2019 11:00 AM Transportation at D/C:Family Discharge Delay Reason: Follow-Up Date:02/25/2019 11:00 AM Discharge Slot: Final Diagnosis:fluid overload Placement Information Referral Type:*Home Health Care Services Referral ID:[id number] Provider Name:[facility] [place] Address 1:[address] [place] [address] Address 2: City:[place] Selection Factors: State:[place] Referral Type:Palliative Care Referral ID:[id number] Provider Name:[facility] Address 1:[address] [place] Address 2: City:[place] Selection Factors: State:[place] Patient Contact Information Contact Name:ALEK Relationship: Address:[address] City:[place] Alternate Phone: [facility]/Zip Code:[place] [address] Email: Financial Information Financial Class:Medicare Primary Plan Desc:MEDICARE OUTPATIENT Primary Plan Number:[id number] Secondary Plan Desc:[employer]/MDR SUPPLEMENT Secondary Plan Number:[id number] Assessment Information [facility] CM Progress Note CM Note CM Note Notes: Pt discussed in rounds and chart reviewed for discharge planning. [place] was admitted with Dyspnea with exertion and placed on oxygen. Pt with a history of stage 4 Breast Cancer and doing Chemo-treatments, next 03/03/19 . Brain metastasis s/p Brain MRI. SVC Stent, Hip replacement. Pt lives with her outside of [place] [address] [place] consulted today. CM available for needs. PLAN: Likely discharge home with when medically stable. Date Signed: 02/24/2019 05:15 PM Electronically Signed By:Amira Hermosillo.FESTUS,MISAEL Case Management Discharge Plan Note Case Management Discharge Discharge Order Complete? Answers: Yes Followup Appointment 02/25/2019 12:00 AM Patient to Obtain Answers: via Family Medications Transportation Arranged Answers: Family/Friends Transport will Pick (Date 02/25/2019 12:00 AM & Time) Faxed Final Orders Answers: Yes Agency/Facility Transfer Answers: Yes Report Printed & Faxed to Receiving Agency Family Notified Answers: Yes Notes: in the room Discharge Comments Notes: CM spoke with pt in the room. Pt to discharge with [facility] with which she was already open. Discharge orders sent to [facility] and CM called to notify them. CM also sent referral to [facility] with whom pt signed on during this admission. No further CM needs noted at this time. Date Signed: 02/25/2019 04:10 PM Electronically Signed By:Joanne Méndez RN Intervention Information Intervention Type:*[facility] Date of Service:02/24/2019 10:24 AM Patient Type:Observation Staff Member:Suze Sandhu Hours: Discipline: Severity: Comment:
== END 2019-02-25 15:14 | disposition home health service (06) ==
LOC: INTOOBSV 12:47 → F1N 13:27
PROVIDERS: ADMIT Internal Medicine; ATTEND Internal Medicine
DX: E87.70 Fluid overload, unspecified (principal); C78.2 Secondary malignant neoplasm of pleura; C79.51 Secondary malignant neoplasm of bone; J90 Pleural effusion, not elsewhere classified; Z85.3 Personal history of malignant neoplasm of breast; E87.1 Hypo-osmolality and hyponatremia; D64.9 Anemia, unspecified; E46 Unspecified protein-calorie malnutrition
CPT/HCPCS: 71046; 71275; 93005; 96372; 96374; 96375; 96376; 97162; 97166; 97530; 99285; G0378; J0456; J0696; J1642; J1650; Q9967; 82435-PO; 82565-PO; 82947-PO; 84132-PO; 84295-PO; 84520-PO; 85014-ER